=== PATIENT | male | born 1995 | race Caucasian/White ===

== ENCOUNTER 2024-03-06 08:00 | Outpatient (RCR) | payer MEDICARE, MEDICAID, SELFPAY ==
--- NOTE | 2024-03-06 09:00 | BH.SGPN.GN ---
Behaviors/Verbalizations/Mental Status: [] Eye contact is good. Motor activity is restless. Appearance is casual. Speech is Appropriate. Mood is anxious. Affect is congruent. Thoughts are linear and logical. No evidence of psychosis. Reviewed daily check in sheet and no reports of suicidal ideations or intent. Client Response/Progress/Benefit: [] Pt participated when prompted. Attentive. Limited engagement due to anxiety as this was his first day. He shared with the group his mental health struggles with OCD and intrusive thoughts. He did not elaborate much expect to state that his obsessions significantly impact his daily life. He is proud of himself for entering the PHP program. Benefited from group support, encouragement, and advice/feedback for his first day. Will continue in PHP to prevent decompensation, decrease intrusive thoughts/compulsions, and improve functioning. Narrative Note: []
--- NOTE | 2024-03-06 10:15 | BH.SGPN.GN ---
Behaviors/Verbalizations/Mental Status: []Pt alert and oriented, casually dressed and groomed. Eye contact good. Motor activity appropriate. Speech within normal limits. Affect congruent, mood depressed and anxious. Thoughts linear, logical, no signs of hallucinations or delusions. Client Response/Progress/Benefit: []Pt an active participant throughout. Participated during interactive discussion on defining conflict (internal/external) and possible benefits to conflict. Attentive during psychoeducation on conflict styles and engaged during group discussion in which peers identified the benefits and consequences to each conflict style. Pt identified they often struggle with avoiding conflict as he fears being seen as weak or incorrect. Reports connecting most with avoidant conflict style. Benefited from increased awareness of the impact of conflict styles in mental health. Will continue in IOP tx for one more day to increase healthy coping skills, improve mood stability, and prevent decompensation. Narrative Note: []
--- NOTE | 2024-03-06 11:15 | BH.SGPN.GN ---
Behaviors/Verbalizations/Mental Status: []Eye contact is good. Motor activity is appropriate. Appearance is casual. Speech is Appropriate. Mood is anxious, and depressed. Affect is constricted. Thoughts are linear and logical. No evidence of psychosis. Client Response/Progress/Benefit: [] Pt was engaged in group discussions and activity. Engaged with peers in activity and identifying healthy ways to approach each conflict scenario. Group discussed various conflict resolution skills that can be useful in addressing conflict outside of IOP. Benefited from practicing and learning conflict resolution skills during group activity. Able to identify areas pt wants to work on to improve how pt manages conflict both internally and externally. Expressed wanting to work on prioritizing his needs instead of avoiding conflict because he might upset someone. Will continue in PHP tx to prevent decompensation, improve daily functioning, and gain distress tolerance skills. Narrative Note: []
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
--- NOTE | 2024-03-06 15:15 | BH.COMM_ITS ---
Communication Note Communication with Client Communication Note: Met with pt to complete initial paperwork and administer the CSSR-S screening and risk assessment. Pt is mild as pt reports having thoughts of wishing he could fall asleep and not wake up because ?sleep is the only time I get peace.? Pt denies any SI, any history of SI, or any history of suicide attempts. Pt has self-harmed in his life, but pt reports it was never with the intention to kill himself. Pt reports he has a fear of . Pt has no access to weapons. Pt a Discussed case with Dr. Dodd and pt will be admitted to [facility] tx with a diagnosis of OCD F 42
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
--- NOTE | 2024-03-07 09:30 | BH.NA ---
Physical Data Vital Signs Pulse Rate: 94 Blood Pressure: 125/86 Height/Weight Height: 1.8 m Weight:: 97.522 kg Weight in Pounds: 215.0 lbs Current Medication Compliance Medication Compliance Do you take your medication as prescribed?: Yes Nutritional History Appetite Nutritional Instructions: Describe your appetite:: Good Additional nutritional information:: Client states he has recently gained about 20lbs due to not being able to exercise with a back injury and eating more due to his depression. Functional Assessment Sleep Pattern Describe any problems with sleeping: Client states he is sleeping about 9 hours per night, and usually napping about 2 hours per day. Sensory/Communication Assess Communication Problems Do you have difficulty understanding what people are saying?: No Medical Problems/History Metabolic Conditions Metabolic: Other (See comments) (hypothyroidism due to thyroid cancer and thyroidectomy) Musculoskeletal Conditions Musculoskeletal: Other (See comments) (back injury due to defect, per client) Cancer History Type of Cancer:: Thyroid Pain Assessment Do you have acute or chronic pain?: Yes (back pain due to injury) Surgical History Surgical History Have you had any surgeries? If so, list type and date:: Yes (testicular torsion, thyroidectomy) Substance Abuse Substance Abuse Please describe substance abuse in the last 30 days:: Client states he has not had any alcohol in the past year due to alcohol making him feel sick with his medication. Client states he has had occasional cigars in the past but none recently. Client states he uses marijuana daily, usually 2-4 times per day. Client states he drinks 1-2 pops per day with caffeine. Mental Status Summary Mental Status Significant Findings/Observations on Appearance and Mood:: Client is alert and oriented x 4. Client is casually groomed. Client is cooperative with assessment. Client has fair eye contact. Client's voice has normal rate and volume. Client's affect is somewhat restricted. Client makes logical associations and has normal processing. Client denies delusions/hallucinations, but does state that his constant intrusive thoughts feel like delusions sometimes. Client denies SI, but does admit to passive thoughts of . Suicide Assessment Suicidal Ideation Are you currently or have you been suicidal in the past?: Yes Suicidal Intentional Rating Scale (SIRS): Suicidal thoughts (past) (admits to passive thoughts of (don't care if I )) Physician Notification Past Psychiatric History MH Treatment Hx Past Psychiatric Medications:: Has had [employer] testing. States he has been on many antidepressants in the past, Ativan and Klonopin did not help Age of first mental health symptoms: Client states he has had OCD his whole life. Client states he was diagnosed with bipolar in the last 6-8 months. Client states he has been on medication for his mental health since age 16. Describe (age, circumstance, etc) any past hospitalizations: Once in 2013, most recent in September 2023 at [facility] for SI Current providers for mental health treatment (counselor, psychiatrist, pillowcase turner, etc.): Dr. Hernandez for psychiatry at [facility] Fall Risk Assessment Age Age: Less than 60 Mental Status Mental Status: Willing & able to ask for assistance when needed Physical Status Physical Status: No problems Impairments Impairments: None Elimination Elimination: Continent AND independent Gait or Balance Gait or Balance: Walks independently Hx of Falls History of falls in the past 6 months: No known history Medications/Substances Psychotropics:: Antipsychotics, Mood stabilizers and Anxiolytics (e.g. benzodiazepines) Medications/substances used within the past 24 hours or ordered to administer: 3 or more of the medications/substances listed above Total Score Total Points:: 2 RN Summary of Impressions Level of Care How do the client's current symptoms and functional deficits support need for this level of care?: Client was referred to IOP after a hospitalization in September 2023 and daily intrusive thoughts that have made daily function difficult. Client states he currently can not drive himself, stating every time he drives he has intrusive thoughts with every noise he hears that he is afraid he ran over a person and has to turn around and makes sure he didn't. 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 Client states he has constant intrusive thoughts that he has harmed people and my brain in constantly making me think I have done bad things that I would never do. Client reports feelings of guilt, constant ruminations, intrusive thoughts, crying spells and anhedonia. Client reports daily panic attacks recently. Client denies SI, but does admit to passive thoughts of . PHP/IOP will promote gains and prevent further decompensation while providing social support and skills training.
--- NOTE | 2024-03-07 10:10 | BH.SGPN.GN ---
Behaviors/Verbalizations/Mental Status: [] Eye contact is good. Motor activity is appropriate. Appearance is casual. Speech is Appropriate. Mood is anxious. Affect is congruent. Thoughts are linear and logical. No evidence of psychosis. Client Response/Progress/Benefit: [] Pt was an engaged participant AEB listening attentively to others, taking notes, and providing feedback in small group discussions. Attentive during psychoeducation AEB by note taking and providing some input. Pt worked along with peers in small groups to define inappropriate guilt and appropriate guilt. Interactive discussion on examples of both inappropriate and appropriate guilt. Worked well in small group with peers where they identified example of inappropriate vs appropriate guilt and the impact inappropriate guilt can have on MH. Benefited from increased awareness of guilt and the differences between appropriate and inappropriate guilt. Plan is to continue in PHP to prevent decompensation, decrease intrusive thoughts and compulsions, increase healthy coping, and improve functioning. Narrative Note: []
[2024-03-07 11:05] VITALS: BP 125/86; PULSE 94
--- NOTE | 2024-03-07 11:10 | BH.SGPN.GN ---
Behaviors/Verbalizations/Mental Status: []Pt alert and oriented, casually dressed and groomed. Eye contact good. Motor activity appropriate. Speech within normal limits. Affect congruent, mood anxious. Thoughts linear, logical, no signs of hallucinations or delusions. Client Response/Progress/Benefit: []Pt engaged participant AEB listening attentively to others and providing input throughout group. Pt worked within their small group to identify strategies to manage inappropriate guilt. Identified a personal example of inappropriate guilt as ?feeling responsible for something he didn?t do?. Provided insight that this cues a feeling of ?fear of disappointing others? Pt wants to work on combatting inappropriate guilt by correcting the distortions and practicing sitting with the uncomfortable. Pt seemed to benefit from learning about strategies to manage appropriate and inappropriate guilt. Pt to continue PHP level of care to continue to improve functioning, prevent decompensation, and promote mood stability. ? Narrative Note: []
--- NOTE | 2024-03-07 12:30 | PCM.BH.PSYEV ---
Psychiatric Evaluation Initial Evaluation Initial Evaluation: History of Present Illness: [] Patient is a 28-year-old's single, male with a history of OCD, depression, who was referred to the [facility] pH P program by his family due to worsening ability to function since September 2023. The patient has been unable to work or drive in recent months and lives with his mother and his 26 and 24-year-old brothers. The patient has a history of recent health issues including being diagnosed with ankylosing spondylitis in recent years and also being diagnosed with thyroid cancer in September 2021 which was treated and is currently in remission. He has been on disability since August 2019 for his back injury and chronic back pain and possibly PTSD but the patient is uncertain. 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 He has thoughts that when he put the business card in the package that he is actually sending something that is contaminating or he is putting pornography in the shipments. These are ego dystonic thoughts. He also has intrusive thoughts when he drives that he is running someone over and so any noise he hears when driving triggers this and he is no longer able to drive. The patient states I cannot keep living like this. The patient would like to be able to work in his online business and function better. The patient is also has intrusive thoughts that I will hurt someone accidentally by burning my house down. The patient then ruminates negatively over these intrusive thoughts to the point where he is uncertain whether they happened or not. For primary support he has his mom. He vapes marijuana daily 2-3 times a day. He endorses sadness, hopelessness, guilt, anhedonia, wanting to sleep all the time, low energy, decreased concentration and passive thoughts of . He denies suicidal ideation, plan for suicide, homicidal ideation, hallucinations or delusions. He denies any nica or hypomania issues. He states he spends money sometimes but only when he is feeling more normal but denies any other symptoms of hypomania or nica. He is a worrier by nature and ruminates negatively. He has been isolating himself and is having panic attacks less than or equal to 1 a day. He has a history of trauma when his sister when he was 9 years old in addition he had a friend in 6 grade and his parents when he was first grade which she found traumatic. He denies nightmares, flashbacks or reexperiencing but he does endorse and avoidance. He denies seizures and has had 2 minor concussions only. He denies eating disorder. Current Psychiatric Medications: [] Xanax 1 mg p.o. less than or equal to once a week as needed for panic attacks; Luvox 50 mg daily (x 1 week only); Latuda 80 mg p.o. daily with food (times several months); Lamictal 150 mg p.o. daily; clomipramine currently weaning off and changing over to Luvox. Past Psychiatric History: [] 3 psych admits in the past. The most recent was in September 2023 at [facility] for severe anxiety and depression. The second 1 was in 2017 and the patient says at that time he was experiencing extreme anxiety, derealization and depersonalization to the point where he thinks he may have been psychotic but is unable to describe symptoms except to say that he was not sure that anything was real. His first psychiatric admission was in 2013. No suicide attempts ever. OCD he has had since he was a toddler and remembers severe symptoms at age 7 also. It worsened in 2019 with the pandemic and then got worse again in the past few months. In 2021 he was experiencing derealization and depersonalization and then got diagnosed with thyroid cancer a few days later. He was first depressed at age 15. He cut himself 1 time in 2021 only and then 1 time on the leg superficially in September 2023 but no other self-harm. Psychiatrist is Dr. Hernandez in [place] for about 1 year. He has had counseling for about 10 years. Denies any exposure and response prevention therapy. Substance Use History: [] Patient vapes marijuana 2-3 times daily and first used marijuana at age 18 and has used it daily for 8 years. No other drug use. No nicotine and no alcohol use. No rehab ever. Allergies: [] Haldol Medications: [] Levothyroxine, multivitamin plus psych meds as dictated above. Past Medical History: [] Ankylosing spondylitis diagnosed in 2012; chronic back pain/injury for which she needs surgery in his right leg gets numb etc. History of thyroid cancer treated with surgery and he is currently in remission. History of surgery for testicular torsion in high school and thyroid surgery as noted above. Family Psychiatric History: [] Mother is 55 years old and father is 59 years old. His father has bipolar and he has a half sister who completed suicide at age 21 and had a history of some cognitive disorder but was a lot older than him. No substance issues in the family. Personal/Social History: [] Patient was born and raised in [place] and then [place] in [facility]. He describes his childhood as I enjoyed it until age 15 except for the traumas. He loves sports and had a lot of friends. He got was a B student and was a perfectionist at school. He had a half sister 18 years older than him and that is the 1 who completed suicide. He has 2 younger brothers and they are not that close but they get along okay and they are one 1 year and 3 years younger than him respectively. His mother is very loving and he is very close to her. His father is not loving and they when the patient was in first grade. Then he saw his father only on weekends and is not very close to his father. He graduated high school and has 1 semester of college but did not like it so quit. He has had numerous jobs in fast food, retail, [employer], dog grooming, [employer] services and now his online business selling vintage clothing. His longest job is the current 1 part-time for about 4-1/2 years. He has never had a serious girlfriend but would like once some day when he gets better. Legal History: [] No arrests. Has otr van cdl truck driver's license. No DUIs. Review of Systems: [] Has a history of chronic back pain with numbness in his legs due to this. Review of system is otherwise negative except as noted in present illness. Laboratory: Thyroid is checked regularly by his thyroid doctor. Vital Signs: [] Vital signs reviewed in the nurses notes and updated and the patient is deemed medically able to participate in the IOP. Mental Status Examination: [] The patient is a 28-year-old male who appears normal for stated age and is casually dressed and good groomed with good hygiene. He is ambulatory with a normal gait and has no psychomotor agitation or retardation. He is cooperative during the interview. Eye contact is good and speech is normal rate and rhythm and fluent with no pressure. Mood is anxious and depressed. Affect is constricted. Thought process is goal-directed and organized. Thought content: The patient has evidence of numerous ego-dystonic intrusive thoughts involving the patient accidentally hurting someone, hitting someone with the car, putting pornography or other contamination and thinks he should males and other. There is evidence of passive thoughts of . There is no evidence of plan for suicide, suicidal ideation, homicidal ideation, hallucinations or delusions. Reality testing is intact. Intelligence is average or above average. Judgment is intact. Insight: Some present. Impulsivity: Moderate. Diagnoses: [] 1. Obsessive-compulsive disorder 2. Major depressive disorder, recurrent, severe without psychosis 3. Generalized anxiety disorder 4. Chronic back pain 5. Ankylosing spondylitis 6. History of thyroid cancer in remission 7. Primary support and work issues 8. THC use disorder Plan: [] The patient will start the [facility] and behavioral health as the structure, support, education and group therapy will hopefully prevent worsening of the patient's symptoms which could require hospitalization. He felt safe during the interview and if it anytime he does not feel safe he agrees to let us know or go to the emergency room. The patient agrees to try to decrease his marijuana use as marijuana can make panic attacks worse and is considered to be panicogenic. No medication changes were made as the doses were recently changed 1 week ago. Discussion was had with the patient that OCD requires higher doses of medications and sometimes can take 12 weeks to see a response in the OCD symptoms. Strong recommendation was made for the patient to get exposure and response prevention therapy later when his OCD is a little better controlled by medications. He will continue to follow-up with his outpatient providers and I will see the patient in follow-up in 1 week.
--- NOTE | 2024-03-07 12:45 | BH.DR.ITP ---
Initial Treatment Plan Patient Information Visit Information: ADMISSION DATE: EXPECTED LOS: 4-6 weeks Problems/Symptoms Problem #1:: Anxiety Symptom:: Worry, rumination, panic attacks, avoidance, intrusive obsessive thoughts Problem #2:: Depression Symptom:: Sadness, hopelessness, guilt, low energy, hypersomnia, anhedonia, passive thoughts of , decreased concentration
--- NOTE | 2024-03-07 15:02 | BH.MDN_ITS ---
Multi-Disciplinary Note Note 45-min Individual: Time Started:: 12:15 Date: 03/07/24 Purpose of session/treatment goals addressed:: To work on homework from yesterday, continue to gather information on pt's symptoms, and begin work on exposure goals. Eye Contact:: Good Motor Activity:: Appropriate Appearance:: Casual Speech:: Rambling Mood:: Anxious and Depressed Affect:: Constricted Thoughts:: Racing, Other (intrusive thoughts) and No evidence of hallucinations/delusions noted Staff Interventions:: psychoeducation on: (ERP and intrusive thoughts), CBT techniques, mindfulness skills, strengths perspective and other (reviewed homework and set homework for tonight. Discussed plan of care that included beginning an exposure hierarchy. ) Client Response:: Pt responded well to session, open to meeting with therapist. Pt reported the topic today was helpful because pt struggles with constant guilt due to his OCD symptoms. Pt feels guilt about hurting people and things he knows he has not logically done. Pt read through the first chapter of the OCD book being used and he connected with it. Reviewed this chapter and discussed the different voices of the mind; worried voice, false comfort, and wetzel mind. Pt asked good questions about the different between worried voice and false comfort which helped pt gain a better understanding of how these voices reinforce OCD. Pt able to see that worried voice for him is the constant what if thoughts that pt has anytime he tries to calm his anxiety down. Pt's false comfort thoughts include reassurance seeking and trying to fight against the disturbing, intrusive thought. Reviewed wetzel mind and reflected on times when pt was able to use wetzel mind before. Pt feels that he could use wetzel mind in the past because his thoughts were less disturbing. Pt worries he will never be able to get past his current intrusive thoughts because of how taboo they are. Pt appeared to benefit from emotional support and thought challenging by therapist. Discussed other ways his intrusive thoughts are reinforced which led to discussion of the compulsions pt engages in that are not mental checking, but physical things. 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 Pt could identify some such as; re- reading addresses excessively, packaging and repackaging orders excessively, and asking for constant reassurance from his mother. Pt will identify other compulsions for homework as this will help pt begin to create his exposure goals. Risks/Concerns:: Pt denies any active SI, plan, or intent. Pt has thoughts of but no SI. Progress Toward Goals/Plan:: Pt's second day of PHP tx and pt reports benefitting from the group topics so far and from seeing Dr. Dodd today. Pt's symptoms are impacting his overall quality of life, daily functioning, and ability to work and drive. Pt is receptive to ERP and beginning to identify some of the compulsions he engages in so pt and therapist can begin working on exposure hierarchy. Pt will continue PHP tx to prevent decompensation, improve daily functioning, and gain distress tolerance skills. Time Stopped:: 13:00
--- NOTE | 2024-03-08 09:05 | BH.SGPN.GN ---
Behaviors/Verbalizations/Mental Status: [] Eye contact is fair. Motor activity is appropriate. Appearance is casual. Speech is Appropriate. Mood is anxious. Affect is congruent. Thoughts are linear and logical. No evidence of psychosis. Reviewed daily check in sheet and no reports of suicidal ideations or intent. Client Response/Progress/Benefit: [] Pt participated at times during the group discussion. Attentive. Emotion for today is detached and disconnected. He discussed being in his head a majority of the time due to intrusive thoughts and obsessions. Briefly shared how these intrusive thoughts can impact his emotions and actions. He is optimistic stating I found a therapist here that actually understands OCD. He shared previous frustrations. He plans on attending a large social event this weekend which he is both excited and fearful about. Peers provided feedback and suggestions on skills to manage anxiety in large crowds which was beneficial. Limited progress noted as intrusive thoughts continue to impact functioning (unable to work/drive). Will continue in PHP to prevent decompensation, decrease intrusive thoughts, and improve functioning. Narrative Note: []
--- NOTE | 2024-03-08 10:00 | BH.SGPN.GN ---
Behaviors/Verbalizations/Mental Status: []Pt alert and oriented, casually dressed and groomed. Eye contact good. Motor activity appropriate. Speech within normal limits. Affect constricted, mood anxious. Thoughts linear, logical, no signs of hallucinations or delusions Client Response/Progress/Benefit: [] Pt was an engaged participate AEB listening attentively to others, participating in group discussions at times, and taking notes throughout. Participated as the group identified ways we can hurt others or sabotage self by not regulating our emotions. Participated with peers to identified ways emotions impact communication. Pt stated high emotions can lead him to shut down. Participated during group activity. Pt benefited from session by gaining an increased understanding on the importance of managing emotions to improve daily functioning. Pt will continue PHP to decrease intrusive thoughts, improve daily functioning, and prevent decompensation.
--- NOTE | 2024-03-08 11:15 | BH.SGPN.GN ---
Behaviors/Verbalizations/Mental Status: []Pt alert and oriented, casually dressed and fairly groomed. Eye contact good. Motor activity appropriate. Speech within normal limits. Affect congruent, mood anxious. Thoughts linear, logical, no signs of hallucinations or delusions. Client Response/Progress/Benefit: [] Pt engaged in session AEB Pt listening attentively to peers and providing input. Attentive during psychoeducation on 4 zones of regulation. Pt able to identify feelings and behaviors for each zone. Pt identified coping skills one can use to support self in each zone. Identified being in the red zone today as pt feels highly anxious and he believes the only thing that will help him today is getting individual counseling after group. Benefited from increased education on zones of regulation or stages of alertness for emotions and healthy coping skills to use for each zone. Will continue PHP tx to prevent decompensation, improve daily functioning, and gain distress tolerance skills. Narrative Note: []
--- NOTE | 2024-03-08 14:35 | BH.MDN_ITS ---
Multi-Disciplinary Note Note 60-min Individual: Time Started:: 12:10 Date: 03/08/24 Purpose of session/treatment goals addressed:: To work on goal #1 of pt's tx plan. Eye Contact:: Good Motor Activity:: Restless Appearance:: Casual Speech:: Tangential, Rapid and Other (repetitive) Mood:: Anxious and Depressed Affect:: Congruent (tearful) Thoughts:: Racing and Circular Staff Interventions:: psychoeducation on: (OCD and intrusive thoughts), CBT techniques, mindfulness skills (practiced deep breathing and self-talk in session), strengths perspective, goal setting (homework to read chapter 3 and practice grounding skills) and taught coping skills Client Response:: Pt responded well to session, open to meeting with therapist. Pt completed homework from last session which was to identify a list of compulsions. Pt's list included; touching his dogs to make sure they are inside, checking the mirror in his car ti make sure he did not hit anyone, turning door knobs until it feels right, re-reading orders out loud until it feels right, turning on and off light switches until it feels right, and asking for reassurance. Pt stated there's so many, this was just want I could think of yesterday. Due to the severity of pt's intrusive thoughts, pt is unable to go more than a few minutes in session without seeking reassurance and bringing up his sexually repulsive intrusive thoughts as they cause a lot of anxiety and shame. Pt is learning that therapist will redirect and not feed the intrusive thought, but pt also needs to have his intrusive thoughts normalized so he does not think he is the only person who has had these. Pt responded well to review of the three voices of the mind; worried voice, false comfort, and wetzel mind. Pt has insight that his thoughts are irrational and intrusive, but pt is unable to withstand from using false comfort currently. Pt and therapist reviewed strategies to help with this included using deep breathing and a wetzel mind statement when pt catches himself spiraling. The mantra used in session was uncertainty is not bad, not knowing every detail doesn't mean something bad happened. Pt is to use this when he begins to have false memories from when he watched his previous girlfriends children. Discussed how the goal when overcoming OCD is not to get certainty, but to learn how to accept thoughts and uncertainty. Pt responded well to an exposure narrative read by therapist and pt shared that helped him feel like he was not alone. Pt's homework is to read chapter 3 and practice his mantra. Risks/Concerns:: Pt denies any active SI, plan, or intent as of 03/08/24. Progress Toward Goals/Plan:: Pt's progress is mild and he is on his third day of PHP tx. Pt feels he is benefitting from the group topics and he is engaging well in group. Pt's symptoms are unchanged, his intrusive thoughts are severe and he is getting little relief unless he is asleep. Pt does report some hopefulness about treatment, but he has excessive worries and constant what if thoughts. Pt often repeats himself during session due to anxiety and intrusive thoughts. Pt seeks reassurance from this therapist often, but pt understands t hat therapist will be working with pt to reduce this. Pt continues to be receptive during sessions and he, so far, is consistent with homework. Pt will continue PHP tx to prevent decompensation and gain healthy coping skills. Time Stopped:: 13:05
--- NOTE | 2024-03-09 09:00 | BH.SGPN.GN ---
Behaviors/Verbalizations/Mental Status: [] Eye contact good. Motor activity appropriate. Speech within normal limits. Affect congruent, mood anxious, content. Thoughts linear, logical, no signs of hallucinations or delusions. Reviewed client?s symptom tracker, pt denies SI,?plan, or intent as of 03/09/2024. Client Response/Progress/Benefit: [] Client receptive of session, attentive and willing to process with group. Identified mental health ?win as allowing himself to be more optimistic about his progress, rather than disqualify it as he often does. Went on to state an additional win as attending group today despite being in a lot of physical pain. Stated this is also his stressor as he struggles with chronic physical pain and has not heard back from his provider. Encouraged by the group to reach back out and advocate for himself. Receptive of and appearing to benefit from group feedback and suggestions. Recommended continued PHP tx to maintain mood stability, promote consistent skill application, well as prevent decompensation. Narrative Note: []
--- NOTE | 2024-03-09 10:10 | BH.SGPN.GN ---
Behaviors/Verbalizations/Mental Status: []Pt alert and oriented, neatly dressed and groomed. Eye contact good. Motor activity appropriate. Speech within normal limits. Affect congruent, mood anxious. Thoughts linear, logical, no signs of hallucinations or delusions Client Response/Progress/Benefit: [] Pt participating during interactive group discussions. Attentive during psychoeducation. Along with peers contributed to interactive discussion on defining what a boundary is in mental health. Pt along with peers identified challenges to setting boundaries which included; fear of other's response, wanting to people please, fear of rejection, losing relationships, etc. Pt along with peers identified the benefits to setting boundaries such as better mental health, strengthen relationships, increased time for self-care, and making healthier choices. Pt shared that he struggles with setting boundaries because he is afraid people will be upset and he does not like conflict. Pt benefited from increased awareness and insight on the importance/benefit to setting health boundaries. Will continue in PHP tx to prevent decompensation, increase daily functioning, and gain healthy coping skills. ? Narrative Note: []
--- NOTE | 2024-03-09 11:00 | BH.SGPN.GN ---
Behaviors/Verbalizations/Mental Status: [] Eye contact is fair. Motor activity is appropriate. Appearance is casual. Speech is Appropriate. Mood is anxious. Affect is congruent. Thoughts are linear and logical. No evidence of psychosis. Client Response/Progress/Benefit: []Pt responded well to session AEB listening attentively to peers, providing some input, as well as taking notes throughout. Pt contributed throughout psychoeducation on different boundary setting styles. Participated in group discussion brainstorming various strategies for improving healthy boundary settings. Pt stated he wants to work on improving boundaries by practicing saying no. ?Seemed to benefit from increased awareness of how different boundary styles can impact mental health. Will continue PHP to increase consistent use of healthy coping skills, decrease anxious avoidance, and prevent decompensation.
--- NOTE | 2024-03-09 15:26 | BH.MDN_ITS ---
Multi-Disciplinary Note Note 60-min Individual: Time Started:: 12:00 Date: 03/09/24 Purpose of session/treatment goals addressed:: To work on goal #1 of pt's tx plan. Eye Contact:: Good Motor Activity:: Appropriate Appearance:: Neat Speech:: Appropriate Mood:: Euthymic and Anxious Affect:: Full Thoughts:: Linear, Logical and No evidence of hallucinations/delusions noted Staff Interventions:: mindfulness skills, goal setting, taught coping skills (reviewed cognitive defusion and other techniques to help with intrusive thoughts.) and other (reviewed homework from yesterday and gave homework to read chapter 7) Client Response:: Pt responded well to session, open to meeting with therapist. Pt reports he is feeling more positive today because of the football game tomorrow, but he is also stressing because he knows this feeling is short-term. Discussed the importance of emotional respite, no matter how long it is. Pt read chapter 3 for homework and highlighted sections he connected with. Pt stated it was helpful to read what I'm thinking and experiencing as it helped pt feel less alone. This chapter was on myths about thoughts and we reviewed some of the ones pt connected with including; thoughts that are repeated are worth thinking about, thoughts mean something about one's character, and the unconscious mind can affect actions. Pt reported one reason his current thoughts are so sticky is because he fears that he just snapped one day and now he is a bad person. This chapter helped pt see that this is common for people with OCD and gave evidence to show this is a myth. Reviewed wetzel mind, worried voice, and false comfort. Pt receptive to therapist helping pt identify his false comfort statements and during session pt was encouraged to practice distress tolerance skills. One thing pt will begin working on in tyler tion to using a self-talk mantra, is avoiding using the words serious, taboo, and terrible when pt talks about his intrusive thoughts. Discussed how the way pt describes these thoughts can actually make the thoughts more sticky as serious thoughts get more attention from the anxious brain. Pt is encouraged to label his intrusive thoughts as junk thoughts as a way to begin practicing himself from the thought and giving the thought less value. Pt struggled with this, but he responded well to gentle reminders. Risks/Concerns:: Pt denies any active suicidal ideations, plan, or intent. Progress Toward Goals/Plan:: Pt's symptoms are ongoing, but pt reports his mood is more excited today because pt is looking forward to a football game he is attending this weekend with his mom. Pt can recognize that looking forward to something gives pt a healthy distraction from his intrusive thoughts, but pt is predicting that by Tuesday the thoughts will be back. Pt will continue with PHP tx to promote mood stability, reduce intensity of pt's intrusive thoughts, and improve daily functioning that has been impaired by OCD. Time Stopped:: 12:55
--- NOTE | 2024-03-12 09:00 | BH.SGPN.GN ---
Behaviors/Verbalizations/Mental Status: [] Pt alert and oriented, casually dressed and groomed. Eye contact fair. Motor activity appropriate. Speech within normal limits. Affect congruent, mood anxious. Thoughts linear, logical, no signs of hallucinations or delusions. Reviewed pt?s symptom tracker, no risk for suicidal ideation, plan, or intent 03/12/24 Client Response/Progress/Benefit: []Pt responded well to session, attentive and engaged. Pt reports feeling distressed and overwhelmed this morning. Pt shared his OCD symptoms tend to be worse over the weekends and pt is also anxious about how the week will go. Pt shared his mental health wins today are that he drove to [facility] by himself today and he did not cancel. 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 Pt was reminded that it is okay to ask for help. Pt appeared to benefit from reflecting on application of coping skills and connecting with peers. Pt will continue PHP tx to prevent decompensation, improve daily functioning, and reduce isolation. Narrative Note: []
--- NOTE | 2024-03-12 10:15 | BH.SGPN.GN ---
Behaviors/Verbalizations/Mental Status: [] Eye contact is good. Motor activity is appropriate. Appearance is casual. Speech is Appropriate. Mood is anxious, depressed. Affect is congruent. Thoughts are linear and logical. No evidence of psychosis. Client Response/Progress/Benefit: [] Pt receptive of session, actively engaged throughout AEB taking notes, providing input, and contributing in small group discussion. Appeared to connect with group topic of automatic thoughts and cognitive distortions, as well as the impact of thought patterns on mental health, coping behaviors, and relationships. This particular group is very heavy on psychoeducation and pt appeared to connect with distortions and how they can impact functioning. Identified struggling with catastrophizing and mental filter distortions. Pt appeared to benefit from gaining insight on distorted thinking patterns and how this impacts overall mental health. Will continue PHP to stabilize mood, improve ability to function, and prevent decompensation. Narrative Note: []
--- NOTE | 2024-03-12 11:15 | BH.SGPN.GN ---
Behaviors/Verbalizations/Mental Status: []Pt alert and oriented, casually dressed and groomed. Eye contact good. Motor activity appropriate. Speech within normal limits. Affect congruent, mood anxious. Thoughts linear, logical, no signs of hallucinations or delusions Client Response/Progress/Benefit: [] Pt was an active participant during group discussion. Pt was placed in a smaller group and participated in combatting example distortions with peers. Pt was engaged in the smaller group, participated in group interactions to brainstorm answers, and appeared to be comprehending cognitive distortions. Pt stated could connect with many of the distortions covered in group. Pt stated he has learned from group today that paying attention to his mindset can have significant impact on his day and progress. Benefited from gaining further insight and awareness of cognitive distortions as well as practicing ways to reframe and challenge thoughts. Will continue in PHP tx to decrease anxiety safety behaviors, improve healthy coping skills, and prevent decompensation.
--- NOTE | 2024-03-12 15:04 | BH.MDN_ITS ---
Multi-Disciplinary Note Note 60-min Individual: Time Started:: 12:00 Date: 03/12/24 Purpose of session/treatment goals addressed:: To work on goal #1 of pt's tx plan and to begin pt's fear ladder. Another goal is to give pt credit for using his skills. Eye Contact:: Good Motor Activity:: Restless Appearance:: Casual Speech:: Tangential and Other (stuttering at times and repetitive, but less so compared to 03/09/24. ) Mood:: Anxious and Other (hopeful) Affect:: Congruent Thoughts:: Racing, Other (less urgency to share thoughts ) and No evidence of hallucinations/delusions noted Staff Interventions:: psychoeducation on: (intrusive thoughts, fear ladder ), CBT techniques, mindfulness skills, strengths perspective and goal setting Client Response:: Pt responded well to session, open to meeting with therapist. Pt is responding well to the Overcoming Unwanted Intrusive Thoughts book and he reports gaining insight as well as skills. Pt connected with the metaphor of a bouncer at the door to help pt dismiss intrusive thoughts that pt is having instead of trying to use false comfort. Pt liked this metaphor and he shared feeling that he feels like his intrusive thoughts aren't knocking at the door as loudly today so he has been able to engage more. Pt stated he had a good weekend and enjoyed the football game he went to with his mother. Pt was anxious about starting the week but pt feels he is doing okay. Pt shared he practiced using the wetzel mind statements over the weekend and pt responded well in session when therapist held pt accountable when he used words like serious and taboo instead of junk. Pt did drive to [facility] today which is the first time pt has driven in a while. Pt admits that he was experiencing a lot of OCD triggers and anxiety, but he wanted to drive because he was starting to feel like a burden to his mother. Discussed working on a fear ladder focused on driving. Reviewed how fear ladders work and pt was anxious, but receptive. 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 Pt receptive to working on the fear ladder for homework and this will be reviewed tomorrow. Risks/Concerns:: Pt denies any active SI, plan, or intent. Pt is more hopeful today. Progress Toward Goals/Plan:: Pt is making progress towards his tx goals AEB pt's reduction in bringing up his most distressing intrusive thoughts less today and using his dismissal skills during session. Pt also shared he used opposite action this morning and drove to IOP. Pt had severe anxiety from the drive, but pt reported he was able to regulate it by groups 2/3 today and be present and benefit from the groups. Pt continues to be consistent and engaged. Pt reports his intrusive thoughts are still constant, but he feels he is gaining more control. Pt will continue PHP tx to promote mood stability, reduce intensity of intrusive thoughts, and improve daily functioning. Time Stopped:: 13:00
--- NOTE | 2024-03-13 09:05 | BH.SGPN.GN ---
Behaviors/Verbalizations/Mental Status: [] Eye contact is poor.. Motor activity is restless. Appearance is casual. Speech is Appropriate. Mood is anxious. Affect is congruent. Thoughts are linear and logical. No evidence of psychosis. Reviewed daily check in sheet and no reports of suicidal ideations or intent. Client Response/Progress/Benefit: [] Pt participated when prompted. Attentive. Daily symptom tracker notes 2/5 for depression and agitation and 3/5 for anxiety. Mental health win was that he drove to [facility] by himself for the past few days. He has been unable to drive for several weeks due to intrusive thoughts and anxiety. ? I made it here without thinking that I hit anyone?. States overall he has noticed slight improvements due to exposure goals and education on intrusive thoughts. ? I think I?m doing pretty well?. Continues to report intrusive thoughts which are impacting his functioning however. Recent obsessive thoughts regarding his health which are upsetting him today. Progress noted. Benefited from group support, encouragement, and feedback. Will continue in [facility] to prevent decompensation, stabilize mood, decrease intrusive thoughts, and improve functioning. Narrative Note: []
--- NOTE | 2024-03-13 10:10 | BH.SGPN.GN ---
Behaviors/Verbalizations/Mental Status: []Client alert and oriented, casually dressed and groomed. Eye contact good. Motor activity appropriate. Speech within normal limits. Affect congruent, mood anxious and euthymic. Thoughts linear, logical, no signs of hallucinations or delusions. Client Response/Progress/Benefit: [] Pt responded well to session AEB actively participating throughout group. Pt was attentive throughout group activity discussing famous individuals and how they overcame failure to be successful. Pt helped group identify how fear of failure can impact mental health and relationships. Pt personally identified it leads to avoidance, not trying, and negative self-talk. participated in experiential activity, working with group members to problem solve. Appeared to benefit from increased knowledge of what causes fear of failure and how it impacts people. Will continue PHP tx to prevent decompensation, improve daily functioning, and reduce intensity of intrusive thoughts. Narrative Note: []
--- NOTE | 2024-03-13 11:10 | BH.SGPN.GN ---
Behaviors/Verbalizations/Mental Status: [] Client alert and oriented, casually dressed and groomed. Eye contact good. Motor activity appropriate. Speech within normal limits. Affect congruent, mood anxious and content. Thoughts linear, logical, no signs of hallucinations or delusions. Client Response/Progress/Benefit: [] Client responded well to session, engaged in the experiential activity and attentive throughout group processing. Client reported fear of failure has kept client from trying new things and forming new relationships. Client completed fear of failure worksheet and was able to identify thoughts and behaviors that reinforce personal fear of failure including past failures, already predicting failure, and ?false thoughts?. Client participated in small group discussion regarding strategies to overcome fear of failure. Identified wanting to work on combating predicting failure with learning to set smart goals and better sit with the uncomfortable. Appeared to benefit from increased knowledge of strategies to combat fear of failure and gaining self-awareness. Client will continue PHP tx to promote gains in reduced anxiety symptoms and prevent decompensation. Narrative Note: []
--- NOTE | 2024-03-13 14:08 | BH.MDN ---
Multi-Disciplinary Note Note 45-min Individual: Time Started:: 12:15 Date: 03/13/24 Purpose of session/treatment goals addressed:: To work on pt's exposure therapy goals and practice wetzel mind self-talk. Eye Contact:: Good Motor Activity:: Appropriate Appearance:: Casual Speech:: Appropriate and Other (repetitive) Mood:: Euthymic and Anxious Affect:: Full Thoughts:: Linear, Racing and No evidence of hallucinations/delusions noted Staff Interventions:: CBT techniques, mindfulness skills, strengths perspective, goal setting and other (reviewed fear ladder and set this weeks ERP goal) Client Response:: Pt responded well to session, open to meeting with therapist. When pt sat down he shared an intrusive thought he was having which was I've poisoned someone at IOP pt was distressed, but he was able to use the techniques he has been working on to begin dismissing this thought. Pt has been working on saying these are junk thoughts and using the bouncer at the door metaphor to help pt dismiss intrusive thoughts and use wetzel mind instead. Pt stated he can tell his intrusive thoughts are a little more persistent today, but he still feels better than last week. Pt completed his homework from yesterday which was to identify steps for his fear ladder. Pt's fear ladder is focused on reducing anxiety and intrusive thoughts pt has while driving. Prior to this past Tuesday, pt had not been able to drive himself places due to his hit and run OCD being so severe. Pt has now driven himself twice to [facility], but he admits he feels severe anxiety the entire time. Discussed the fear ladder and why it is important to start slowly and work his way up. Pt recognizes he kind of dove right in but he shared the reason why is because he did not want his mom to keep taking off work. Pt did well with identifying fear ladder goals and pt selected his goal for this week which is to sit in his parked car with the car turned off without checking his mirrors. Pt shared this gives he mild anxiety and he feels that he can repeat this goal. Pt shared he is anxious about the ERP goals, but he is also interested in them. Risks/Concerns:: Pt denies any suicidal ideations, plan, or intent. Pt denies any thoughts of . Progress Toward Goals/Plan:: Pt continues to make progress towards his tx goals AEB pt's self-report of utilizing healthy coping skills outside of group, pt's receptiveness to exposure goals, and his increasing ability to dismiss intrusive thoughts. Pt's symptoms continue to impact his daily functioning and keep pt from working. Pt is working on being able to drive again, but pt reports when he forces himself to drive, he has severe anxiety the entire time. Pt will continue PHP tx to promote use of healthy coping skills, increase ability to manage intrusive thoughts and reduce compulsions, and improve daily functioning. Time Stopped:: 13:00
--- NOTE | 2024-03-14 09:00 | BH.SGPN.GN ---
Behaviors/Verbalizations/Mental Status: [] Eye contact good. Motor activity appropriate. Speech within normal limits. Affect congruent, mood anxious. Thoughts linear, logical, no signs of hallucinations or delusions. Reviewed client?s symptom tracker, pt denies SI,?plan, or intent as of 03/14/2024. Client Response/Progress/Benefit: [] Client receptive of session, attentive and willing to process with group. Reports improving sx of depression?(1/5) and anxiety (3/5) per daily sx tracker. ?Identified mental health ?win as sitting with the uncomfortable and going to put air in his tires despite knowing this would make him late for iOP treatment. Shared that normally he would have cancelled group for the day rather than be late, but is working towards exposure goals. Discussed feeling proud of himself for being able to accomplish this goal. Additional win noted as continuing to show-up for IOP treatment, despite feeling anxious and uncomfortable working through his OCD. Reviewed the importance of being able to better manage OCD symptoms. Pt described his current stressor as continuing to work on exposure goals. Noted this is both a positive and stressor. Receptive of and appearing to benefit from group support. Recommended continued PHP tx to further improve mood stability, promote consistent skill application and ongoing progress with ERP tx, as well as prevent decompensation. Narrative Note: []
--- NOTE | 2024-03-14 10:10 | BH.SGPN.GN ---
Behaviors/Verbalizations/Mental Status: [] Eye contact is good. Motor activity is appropriate. Appearance is casual. Speech is Appropriate. Mood is anxious. Affect is congruent. Thoughts are linear and logical. No evidence of psychosis. Client Response/Progress/Benefit: [] Pt participated at times during group discussion. Engaged in group activity and attentive during psychoeducation. Along with peers, pt was able to identify barriers to taking action in their life. Identified several symptoms and stressors that pt feels are holding them back from progress such as fear and self-doubt. Stated these things have kept pt from having a life that is more enjoyable as well as relationships. Benefited from increased self-awareness of obstacles. Will continue IOP tx to prevent decompensation, stabilize mood, improve functioning, decrease intrusive thoughts, and increase healthy coping. Narrative Note: []
--- NOTE | 2024-03-14 11:10 | BH.SGPN.GN ---
Behaviors/Verbalizations/Mental Status: []Pt alert and oriented, casually dressed and groomed. Eye contact good. Motor activity appropriate. Speech within normal limits. Affect congruent, mood anxious. Thoughts linear, logical, no signs of hallucinations or delusions. Client Response/Progress/Benefit: [] Pt responded well to session, taking notes and participating in worksheet discussion. Pt connected with the discussion on motion vs action steps, and this helped pt learn how to set goals differently. Pt set a goal to reduce fear of rejection. Pt identified motion steps including practicing positive self-talk, having his mother for support, and reminding himself what he wants. Pt also made action steps which included saying affirmations and using opposite action. Appeared to benefit from identifying a small goal to benefit mental health. Pt is to continue PHP tx to promote mood stability, reduce frequency of intrusive thoughts and improve daily functioning. ? Narrative Note: []
--- NOTE | 2024-03-14 12:00 | PCM.BH.PN ---
Progress Note Progress Note: History of Present Illness/Interim History: The patient is a 28-year-old single male with a history of OCD, depression is seen in follow-up at the [facility] where he was last seen 1 week ago. The patient states that he feels a lot better since starting the program last week. He feels he is learning valuable information in the groups but especially in his individual therapy sessions regarding his obsessive-compulsive disorder. He states that his intrusive thoughts are a little less intense and easier to ignore. 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 These are still present as stated above but are less intense and he is learning skills to deal with them. He still is unable to work or drive. He has a history of ankylosing spondylitis and thyroid cancer in September 2021 which is in remission and has been on disability since August 2019 for chronic back pain. He has been decreasing his marijuana usage as recommended and is tried to not ruminate negatively over his intrusive thoughts. His depressive symptoms have also lessened and he denies any passive thoughts of this week. He also continues to deny suicidal ideation, plan for suicide, homicidal ideation, hallucinations or delusions. He is still having occasional panic attacks but less than before. He is tolerating the Luvox well. Current Psychiatric Medications: [] Luvox either 50 mg or 100 mg (patient uncertain of what dose he is on and told the nurse here a different dose than he told's so he will check the dose at home; he has been on that dose for 2 weeks now); he is discontinuing his wean of the clomipramine and will stop taking clomipramine in the next day or 2.; Latuda 80 mg p.o. daily with food (times several months); Lamictal 150 mg p.o. daily; Xanax 1 mg p.o. less than or equal to once a week as needed for panic attacks. Mental Status Examination: [] The patient is a 28-year-old male who appears normal for stated age and is ambulatory with a normal gait and is casually dressed and groomed with good hygiene. He has no psychomotor agitation or retardation. He is cooperative and pleasant during the interview. Eye contact is good and speech is normal rate and rhythm and fluent with no pressure. Mood is anxious and depressed. Affect is mildly constricted. Thought process is goal-directed and organized. 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 There is no evidence of passive thoughts of , plan for suicide, suicidal ideation, homicidal ideation, hallucinations or delusions. Reality testing is intact. Judgment is intact. Insight is fair and improving. Impulsivity is moderate. Diagnoses: [] 1. Obsessive-compulsive disorder 2. Major depressive disorder, recurrent, severe without psychosis 3. Generalized anxiety disorder 4. Chronic back pain 5. Ankylosing spondylitis 6. History of thyroid cancer in remission 7. THC use disorder 8. Primary support and work issues Plan: [] The patient will continue the PHP as the structure, support, education and group therapy will hopefully prevent worsening of the patient's symptoms which could require hospitalization. He felt safe during the interview and if it anytime he does not feel safe he agrees to let us know or go to the emergency room. He will continue to try to decrease his marijuana use. He agrees to find out the exact dose of the Luvox he is on and he will increase that dose by 50 mg and let us know what dose that is. The patient agrees to get further exposure and response prevention therapy later when he is finished with the eye IOP and PHP. He will continue to follow-up with his outpatient providers and I will see the patient in follow-up in 1 week.
--- NOTE | 2024-03-14 15:38 | BH.MDN ---
Multi-Disciplinary Note Note 45-min Individual: Time Started:: 12:00 Date: 03/14/24 Purpose of session/treatment goals addressed:: To work on goal #1 of pt's tx plan and to review pt progress. Eye Contact:: Good Motor Activity:: Appropriate Appearance:: Casual Speech:: Appropriate Mood:: Euthymic and Anxious Affect:: Full Thoughts:: Circular and No evidence of hallucinations/delusions noted Staff Interventions:: CBT techniques, mindfulness skills, strengths perspective, goal setting and other Client Response:: Pt responded well to session, open to meeting with therapist. Pt reports he is noticing improvements and he is not sure if it's the meds or the therapy or both. Pt stated he does not want to give only the medication the credit as pt has been using a lot more coping skills and getting into a new routine as been helpful. Pt shared his mother is noticing a difference as well. Pt still endorses daily anxiety, avoidance, intrusive thoughts, and compulsions. Pt stated it's like my brain isn't getting constantly blasted by the thoughts, they are there but I'm not letting them bother me as much. Pt stated dismissing the thoughts and giving them less power has been helpful. Pt has been using the metaphor the bouncer at the door to help pt not engage with junk thoughts. Pt has also been doing better in session with avoiding terms like taboo and serious when describing his intrusive thoughts. Pt has recently begun driving again, but he admits his anxiety is extreme and he is unable to do any other driving besides to PHP and home. Pt completed his driving fear ladder for homework and today he is working on the first goal which is to sit in his car with it turned off and not engage in his compulsions. Pt stated instead of engaging in his compulsions he can practice self-talk and mindfulness skills. Pt shared he already knows his brain is going to tell him you hit someone but he feels he is getting better at dismissing these thoughts. Pt shared he has been using his wetzel mind thinking more often at home as well and he is gaining confidence. Risks/Concerns:: Pt denies any SI or thoughts of . Progress Toward Goals/Plan:: Pt continues to make progress towards tx goals AEB pt's consistent attendance and his engagement in group and individual sessions. Pt reports he is feeling more at ease sharing in group sessions and he is gaining confidence in his ability to manage his OCD. Pt stated his mother has noticed a change in him as well. Pt is receptive to dropping down to IOP next week. Pt will continue PHP to promote mood stability, further decrease intensity and frequency of intrusive thoughts, and improve distress tolerance skills. Time Stopped:: 12:45
--- NOTE | 2024-03-15 13:27 | BH.MDN_ITS ---
Multi-Disciplinary Note Note 60-min Individual: Time Started:: 09:05 Date: 03/15/24 Purpose of session/treatment goals addressed:: To work on goal #1 of pt's tx plan. Another goal was to discuss plan of care. Eye Contact:: Good Motor Activity:: Appropriate Appearance:: Neat Speech:: Appropriate and Rambling Mood:: Euthymic and Anxious Affect:: Full Thoughts:: Circular, Other (optimistic) and No evidence of hallucinations/delusions noted Staff Interventions:: CBT techniques, mindfulness skills, strengths perspective and other (worked on fear ladder goals and reviewed current fear ladder progress) Client Response:: Pt responded well to session, open to meeting with therapist. Pt reports feeling optimistic but also afraid that I'll crash. Pt responded well to thought challenging as well the discussion of what realistic progress looks like. Pt recognizes that he tends to be critical of himself when he has a setback because in the past when he did well I always crashed. Pt able to challenge his perspective and also identify things he can do to potentially avoiding the crash. This led to a discussion of pt's current goals around driving, work, and ERP. Pt shared he is having urges to jump ladder steps because he is feeling better than he expected he would while in PHP. Pt understands that wanting to set higher goals is normal, but for long-term benefit, pt will gain more from doing his smaller goals first and repeating them until anxiety is decreased. Pt is currently working on sitting in his car without it being on and not engaging in mental checking/checking his mirrors. Pt shared this has caused more anxiety than he thought, but he has been able to do this multiple times with success. Pt shared as soon as he sits in the car his thoughts begin saying you hit someone, you ran over someone and pt has been telling himself, that's a junk thought the car isn't even on. Pt shared he will continue to work on this until his anxiety is down from a 3/10 to a 1/10. 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 Pt's intrusive thoughts have been so severe that pt has had to stop working due to his non-stop anxiety. Pt's intrusive thoughts about work included I'm getting feces on my items, I'm sending inappropriate things with my items, and I got pee on my items. Instead of jumping back into work which pt rated a 10/10 for anxiety, pt was receptive to starting with writing letters and sending them to family/friends so he can practice sitting with the uncomfortable and not engaging in checking compulsions. This will help pt work his way up to working again. Risks/Concerns:: Pt denies any SI or thoughts of as of 03/15/24 Progress Toward Goals/Plan:: Pt continues to do well in PHP and he is recognizing a reduction in frequency and intensity of his intrusive thoughts. Pt shared his mother is also noticing a difference and pt is feeling cautiously optimistic. 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 Pt continues to be receptive to the ERP goals and he reports he is both excited to get to more challenging steps and also anxious. Pt's goal tonight is to continue working on his driving fear ladder and start his fear ladder for work. Pt will continue PHP tx for a few more sessions to further increase self-confidence in his ability to manage symptoms, reduce anxiety, and improve daily functioning. Time Stopped:: 10:05
--- NOTE | 2024-03-16 09:00 | BH.SGPN.GN ---
Behaviors/Verbalizations/Mental Status: [] Eye contact is poor. Motor activity is appropriate. Appearance is casual. Speech is Appropriate. Mood is depressed/anxious. Affect is congruent. Thoughts are linear and logical. No evidence of psychosis. Reviewed daily check in sheet and no reports of suicidal ideations or intent. Client Response/Progress/Benefit: [] Pt participated when prompted. Attentive. Daily symptom tracker notes 4/5 for depression and 3/5 for anxiety. Pt states I'm a little more depressed today. Forced myself to come in today. Insight that depressed mood is related to his program therapist not being present today to meet with him. (therapist is on vacation). According to pt I was doing so well yesterday. Concerns about regression however is able to reframe due to insight on reason for depressed mood. Increase in intrusive thoughts which made driving more challenging this AM. Benefited from group support, encouragement, and feedback. Will continue in PHP to prevent decompensation, decrease intrusive thoughts, and improve functioning. Narrative Note: []
--- NOTE | 2024-03-16 10:10 | BH.SGPN.GN ---
Behaviors/Verbalizations/Mental Status: [] Client alert and oriented, casually dressed and groomed. Eye contact good. Motor activity appropriate. Speech within normal limits. Affect congruent, mood euthymic and anxious. Thoughts linear, logical, no signs of hallucinations or delusions. Client Response/Progress/Benefit: [] Pt responded well to session AEB sharing and listening attentively to others. Group provided examples of benefits of having social support, including: validation, get assistance, and accountability. Pt also participated in group discussion regarding the barriers to accessing support including examples like: lack of trust, avoidance, and fear of vulnerability. Pt participated in experiential activity illustrating the impact communication, boundaries, and patience play in creating healthy support systems. Pt appeared to benefit from increased knowledge of the benefits of social support and greater self-awareness. Will continue IOP tx to prevent decompensation, reduce negative self-talk, and improve overall functioning. Narrative Note: []
--- NOTE | 2024-03-16 11:10 | BH.SGPN.GN ---
Behaviors/Verbalizations/Mental Status: [] Client alert and oriented, casually dressed and groomed. Eye contact good. Motor activity appropriate. Speech within normal limits. Affect congruent, mood euthymic and anxious. Thoughts linear, logical, no signs of hallucinations or delusions. Client Response/Progress/Benefit: [] Pt was an active participant throughout AEB contributing to discussion, providing personal examples, and taking notes. Pt provided input during discussion on the types of support our supports can provide. Pt able to identify current support system and barriers that get in the way of using supports. Pt reported after identifying what type of supports pt receives, pt gained awareness that pt could benefit from more social support. Pt wants to work on taking advantage of more opportunities and reach out more. Pt shared this would all around give him more stuff to do. Pt seemed to benefit from identifying the type of support pt needs to work on improving. Pt recommended to continue IOP tx to prevent decompensation, decrease obsessive thought patterns, and increase emotional regulation skills. Narrative Note: []
--- NOTE | 2024-03-16 12:05 | BH.MDN ---
Multi-Disciplinary Note Note 60-min Individual: Time Started:: 12:05 Date: 03/16/24 Purpose of session/treatment goals addressed:: To work on goal #1 and #2 of pt's tx plan. Eye Contact:: Good Motor Activity:: Appropriate Appearance:: Neat Speech:: Appropriate and Rambling Mood:: Euthymic and Anxious Affect:: Congruent Thoughts:: Logical and Circular Staff Interventions:: CBT techniques, mindfulness skills and rapport building Client Response:: Pt responded well to session, open to meeting with therapist. Pt reports feeling better as the day went on, with initially feeling down when arriving this morning for the program. PT said after driving in his car, he feels pretty heighted initially afterwards. Therapist and pt discussed his homework and symptomology. Pt indicated that overall he has been noticing positive changes with decrease in intrusive thoughts over the past two weeks. PT shared techniques of shutting down intrusive thoughts by using statements like that's junk thoughts and bouncer at the door not allowing thoughts in has helped with stopping progression of thoughts. PT shared progress with fear ladder discussing still struggling with feeling uncomfortable with sitting in car, but is willing on trying next step in ladder. PT also discussed that he plans on mailing stuff out with having family member present to observe. PT shared some concerns of intrusive thoughts never going away and fearful of intense thoughts ruining progress he will make in the future. PT discussed feelings of shame with thoughts being so taboo and different from who is he as a person. PT discussed ways he rationalizes thought patterns as logical, giving them more power. PT and this worker discussed strategies to minimize feeding into them. This worker and pt discussed mindfulness based techniques to utilize to encourage staying in the moment to deter anxious future thinking. Discussed looking at short term progress goals right now instead of focusing on the supervisor intermediates. Client indicated he will try the 5 senses when sitting in his car. Risks/Concerns:: denies any SI or thoughts of as of 03/16/24 Progress Toward Goals/Plan:: Pt continues to make progress in [facility] with notable difference in frequency of intrusive thoughts minimizing over past two week. 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 Pt is unable to drive more than to and from [facility]. Pt continues to be receptive to the ERP goals and he reports he is willing to get to more challenging steps and also anxious. Pt's goal is to continue working on his driving fear ladder and implement mindfulness techniques. Pt will continue PHP tx to further increase self-confidence in his ability to manage symptoms, reduce anxiety, and improve daily functioning. Time Stopped:: 13:16
--- NOTE | 2024-03-20 10:10 | BH.SGPN.GN ---
Behaviors/Verbalizations/Mental Status: [] Eye contact is fair. Motor activity is appropriate. Appearance is casual. Speech is Appropriate. Mood is anxious. Affect is congruent. Thoughts are linear and logical. No evidence of psychosis. Client Response/Progress/Benefit: [] Pt receptive to session AEB contributing to group discussion, as well as listening attentively to others, and taking notes. Worked with group to brainstorm the positive and negative aspects of stress on physical and mental health as well as the impact of distress on performance, relationships, and mental health. Pt shared their top stressors to be: OCD symptoms, not being able to work, and physical health. Shared when feeling overwhelmed with stress pt tends to shut down. Benefited from increased awareness of positive and negative stress as well as how stress impact individuals. Will continue in PHP to decrease anxious symptoms, increase follow through on exposure goals, and prevent decompensation.
--- NOTE | 2024-03-20 11:15 | BH.SGPN.GN ---
Behaviors/Verbalizations/Mental Status: [] Pt alert and oriented, casually dressed and groomed. Eye contact good. Motor activity appropriate. Speech within normal limits. Affect congruent, mood anxious and dysthymic. Thoughts linear, logical, no signs of hallucinations or delusions. Client Response/Progress/Benefit: [] Pt was an attentive and active participant in group discussions and experiential activity, doing well to regulate their emotions throughout the activity and work with peers. Attentive during psychoeducation on the 4 A's (Avoid, adapt, alter, accept) of coping with stress. Shared that they would benefit most from adapting the way their perspective regarding ongoing, chronic physical health issues. Was able to identify the connection between the experiential activity and utilization of stress management skills. Benefited from increased awareness of stress management strategies. Pt will d/c from PHP level of care given improved mood stability and begin IOP tx tomorrow to prevent decompensation, continue to promote progress on exposure therapy goals, and further improve daily functioning. Narrative Note: []
--- NOTE | 2024-03-20 13:19 | BH.DS ---
Discharge Summary Demographics Date of Admission:: 03/06/24 Discharge Date: 03/20/24 Presenting Problems at Admission:: Pt is a 28-year-old male with a history of OCD, ODALIS, and MDD who was referred to [facility] by his mother as pt has been significantly decompensating due to his OCD symptoms. Pt has two previous hospitalizations with the most recent being in September 2023. Pt endorses severe and constant intrusive thoughts, anxiety, and compulsions that have been hindering pt's ability to work and function. Pt endorses hit and run OCD which is keeping pt from driving due to constant fear that pt has hit someone. Pt also has intrusive thoughts that he has hurt people and that he zapien contaminated things. Pt also endorses a depressed mood with crying spells, increased appetite, increased sleep, low motivation, anhedonia, and isolation. Discharge Diagnoses:: Obsessive-compulsive disorder F 42; Major depressive disorder, recurrent, severe without psychosis; Generalized anxiety disorder Reason for Discharge:: Pt has made progress in [facility] level of care and although pt is having higher symptoms today, pt has been consistently reporting a reduction in intrusive thoughts and an improved mood. Pt will transition to [facility] level of care starting 03/21/24. Treatment Progress During Treatment & Response: Pt did well in [facility] tx AEB pt's consistent attendance, engagement in group and individual sessions, and self-report of applying coping skills. Pt reports a reduction in intrusive thoughts and engagement in compulsions both mentally and physically, and improving functioning. Issues Still to be Addressed:: Pt will continue to work on his ERP goals to reduce OCD and improve his daily functioning. Pt will also work on self-compassion and increasing self-confidence. Discharge Recommendations/Instructions:: Case discussed with team with plan to discharge from [facility] as pt no longer meets criteria for this level of care. Plan to start IOP on 03/21/24. Discharge Handout
--- NOTE | 2024-03-20 13:24 | BH.MDN_ITS ---
Multi-Disciplinary Note Note 60-min Individual: Time Started:: 12:10 Date: 03/20/24 Purpose of session/treatment goals addressed:: To work on goal#1 of pt's tx plan and to reinforce progress despite recent setback. Eye Contact:: Good Motor Activity:: Restless Appearance:: Casual Speech:: Tangential and Other (repetitive) Mood:: Anxious and Depressed Affect:: Congruent (tearful at times.) Thoughts:: Racing and Other (seeking reassurance due to increase in intrusive thoughts.) Staff Interventions:: CBT techniques, mindfulness skills, strengths perspective, taught coping skills (self-compassion and thought challenging on black and white thinking) and other (used cognitive defusion and techniques from the OCD workbook.) Client Response:: Pt responded well to session, open to meeting with therapist. Pt was tearful and shared he is mentally beating himself up for not coming in yesterday and he is having a hard time not having all or nothing thinking. Pt shared over the weekend he struggled and the intrusive thoughts came back and hit me really hard. Pt reported he had a lot of panic, crying, and engagement in compulsions over the weekend. Pt stated he has been dealing with that while also ruminating and really guilty about having a setback because he does not want IOP staff to think you guys aren't doing a good job. Pt receptive to thought challenge on black and white thinking as well as personalizing. Pt expressed frustration as well because he felt the setback happened out of nowhere but with further exploration, pt realized that even good stress is stress to the brain and can make intrusive thoughts more sticky. Pt also noted that he was worried about changing in routine going into IOP and he was having more physical pain recently which also can contribute to worsening symptoms. Pt needed more reassurance today, but he still did well when therapist encouraged him to use cognitive defusion techniques. Pt also receptive to beginning to work on writing down things he has accomplished and made progress towards. This will help pt when he has setbacks in the future and to help pt remind himself that emotions are temporary. Pt was more hopeful by the end of session, but still anxious. Pt will begin IOP tomorrow. Risks/Concerns:: Pt denies any suicidal ideations, plan, or intent. Pt denies any thoughts of . Pt's symptoms of OCD did increase over the weekend . Progress Toward Goals/Plan:: Pt presents with a setback in OCD symptoms today, but overall pt has been doing much better. Therefore, pt will still discharge from [facility] today and begin IOP tx tomorrow. Due to the severity of pt's symptoms and the progress pt made with increased individual sessions, pt will still be seen multiple times a week until his symptoms decrease more consistently. Time Stopped:: 13:10
== END 2024-03-20 13:25 | disposition home or self-care (01) ==
LOC: BHPHP 08:00
PROVIDERS: Referring Provider Psychiatry & Neurology Psychiatry; Visit Provider Psychiatry & Neurology Psychiatry
DX: F42.9 Obsessive-compulsive disorder, unspecified (principal); F33.2 Major depressive disorder, recurrent severe without psychotic features; F41.9 Anxiety disorder, unspecified
CPT/HCPCS: H0035; 90834; 90837; G0410

== ENCOUNTER 2024-03-21 08:00 | Outpatient (RCR) | payer MEDICARE, MEDICAID, SELFPAY ==
--- NOTE | 2024-03-20 09:05 | BH.SGPN.GN ---
Behaviors/Verbalizations/Mental Status: [] Pt alert and oriented, neatly dressed and groomed. Eye contact good. Motor activity restless. Speech within normal limits. Affect congruent, mood anxious. Thoughts linear, logical, no signs of hallucinations or delusions. Reviewed pt?s symptom tracker, no risk for suicidal ideation, plan, or intent 03/20/24 Client Response/Progress/Benefit: []t responded well to session, attentive and engaged. Pt shared feeling optimistic this morning as pt feels he is bouncing back from a rough night and he is willing to keep working towards his goals. Pt's mental health wins include using opposite action when he wanted to isolate and trying to challenge negative thoughts today. Pt's stressor is he is in pain today and when he has more pain he has more intrusive thoughts typically. Pt receptive to feedback from peers on how to use positive thinking.Pt appeared to benefit from reflecting on gains and connecting with peers. Pt will continue IOP tx to prevent decompensation, increase distress tolerance skills, and improve daily functioning. Narrative Note: []
--- NOTE | 2024-03-21 09:00 | BH.SGPN.GN ---
Behaviors/Verbalizations/Mental Status: [] Eye contact is good. Motor activity is appropriate. Appearance is casual. Speech is Appropriate. Mood is anxious. Affect is congruent. Thoughts are linear and logical. No evidence of psychosis. Reviewed daily check in sheet and no reports of suicidal ideations or intent. Client Response/Progress/Benefit: [] Pt participated at times during the group discussion. Attentive. Daily symptom tracker notes 2/5 for depression and 3/5 for anxiety. Able to identify mental health wins which include beginning to ?bounce back? from a recent influx in intrusive thoughts. Noted that he did not stay fixated on these thoughts near as long as he would have in the past. Additional win noted as successfully completing a small exposure goal with his individual therapist this morning. Shared feeling less anxious than expected in doing so. He shared recent stressor as? ongoing physical health issues but did well to identify several things within his control to keep making progress in this area as well. Progress noted. Benefited from group support, encouragement, and feedback. Will continue in IOP to prevent decompensation, stabilize mood, and increase healthy coping. Narrative Note: []
--- NOTE | 2024-03-21 10:10 | BH.SGPN.GN ---
Behaviors/Verbalizations/Mental Status: [] Client alert and oriented, casually dressed and groomed. Eye contact good. Motor activity appropriate. Speech within normal limits. Affect congruent, mood euthymic and anxious. Thoughts linear, logical, no signs of hallucinations or delusions. Client Response/Progress/Benefit: [] Client was an active participant AEB contributing to discussion, taking notes, and engaging in group activity. Connected with the topic of pitfalls and listened to group discussion on barriers that prevent from choosing a healthier path to mental wellness. Group worked together to identify examples of personal pitfalls which included; isolation, avoidance, making excuses, denial, distortions, and unhealthy coping. Client identified falling out of routines and entertaining intrusive thoughts as personal pitfalls that have inhibited progress in the past. Client benefited from group as client learned to better identify potential barriers to improving mental health symptoms. Client will continue IOP tx to prevent decompensation, gain healthy support, and improve daily functioning. Narrative Note: []
--- NOTE | 2024-03-21 11:04 | PCM.BH.PN_ITS ---
Progress Note Progress Note: History of Present Illness/Interim History: The patient is a 28-year-old single male with a history of OCD and depression who is seen in follow-up at the [facility] PHP program. I last saw the patient 1 week ago and the patient states that he feels much better since starting the program and feels that he is gaining insight and learning skills valuable in helping him with his mental health issues. He especially is enjoying doing some mix Maritza therapy for his intrusive thoughts and he states that these intrusive thoughts have lessened in intensity and quantity as he is able to deflect them better. He is still unable to drive because of his intrusive thoughts about running someone over. He would like to begin working again soon and is working on a plan with his counselor to do that. He has been on disability since August 2019 for chronic back pain and has a history of ankylosing spondylitis and thyroid cancer in September 2021 which is in remission. No alcohol use since July or August and is decreasing his marijuana use. He states he is still a little depressed but his symptoms overall have lessened. He is attempting to ruminate less about his intrusive thoughts. He is sleeping about 8 or 9 hours a night and is napping less during the day. He denies passive thoughts of , suicidal ideation, plan for suicide, homicidal ideation, hallucinations or delusions. His panic attacks are down to less than or equal once a week now which is less than when he started the program. He is tolerating the medications well. Current Psychiatric Medications: [] Luvox 150 mg p.o. daily (increased 6 days ago by his outpatient provider); Latuda 80 mg p.o. daily with food; Lamictal 150 mg p.o. daily; trazodone 50 mg p.o. nightly as needed for sleep; levothyroxine 25 mcg p.o. daily. Mental Status Examination: [] The patient is a 28-year-old male who appears normal for stated age and has a transverse scar on his neck. He is ambulatory with a normal gait and is casually dressed and groomed with good hygiene. He is cooperative and pleasant during the interview and has no psychomotor agitation or retardation. Speech is normal rate and rhythm and fluent with no pressure and eye contact is good. Mood is depressed. Affect is full and normal. Thought process is goal-directed and organized. 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 There is no evidence of passive thoughts of , plan for suicide, suicidal ideation, homicidal ideation, hallucinations or delusions. Reality testing is intact. Judgment is intact. Insight is good. Impulsivity is moderate. Diagnoses: [] 1. Obsessive-compulsive disorder 2. Major depressive disorder, recurrent, severe without psychosis (improving) 3. Generalized anxiety disorder 4. Chronic back pain 5. Ankylosing spondylitis 6. History of thyroid cancer currently in remission 7. THC use disorder 8. Primary support and work issues Plan: [] The patient will stepdown to IOP as his condition has improved. He felt safe during the interview and if it anytime he does not feel safe he agrees to let us know or go to the emergency room. The risk, options, possible complications and side effects of the medication were again discussed with the patient and he understands accepts these. No medication changes were made today as they were recently changed. He will continue to follow-up with his outpatient providers and I will see the patient in follow-up in several weeks. Prescriptions were sent in as refills for his Luvox and his trazodone.
--- NOTE | 2024-03-21 11:10 | BH.SGPN.GN ---
Behaviors/Verbalizations/Mental Status: [] Client alert and oriented, casually dressed and groomed. Eye contact good. Motor activity appropriate. Speech within normal limits. Affect congruent, mood anxious and euthymic. Thoughts linear, logical, no signs of hallucinations or delusions. Client Response/Progress/Benefit: [] Client receptive of session, engaged throughout AEB client actively listening and contributing to discussion as well as taking notes.? Client participated in the experiential activity and did well to communicate ideas with peers and manage emotions. Client attentive as group processed how the emotions and perspective of the group impacted the activity. Group worked together to identify different coping skills to help manage pitfalls. Client identified pitfall they struggle with as entertaining intrusive thoughts. Client plans to work on their pitfall by utilizing grounding techniques. Benefited from identifying personal pitfalls and strategies to overcome these pitfalls. Will continue IOP tx to prevent decompensation, improve self-care and emotion regulation. Narrative Note: []
--- NOTE | 2024-03-21 11:10 | BH.DR.ITP ---
Initial Treatment Plan Patient Information Visit Information: ADMISSION DATE: EXPECTED LOS: 4-6 weeks Problems/Symptoms Problem #1:: Anxiety Symptom:: Worry, rumination, panic attacks, intrusive thoughts with checking rituals Problem #2:: Depression Symptom:: Sadness, guilt, low energy, decreased concentration, anhedonia
--- NOTE | 2024-03-21 14:19 | BH.MDN ---
Multi-Disciplinary Note Note 60-min Individual: Time Started:: 12:10 Date: 03/21/24 Purpose of session/treatment goals addressed:: To work on goal #2 of pt's tx plan and to review IOP goals and plan. Eye Contact:: Good Motor Activity:: Appropriate Appearance:: Casual Speech:: Tangential Mood:: Anxious, Depressed and Other (hopeful) Affect:: Congruent (tearful at times.) Thoughts:: Other (ruminating ) and No evidence of hallucinations/delusions noted Staff Interventions:: thought challenging, CBT techniques, mindfulness skills, strengths perspective, goal setting, taught coping skills (accomplishment log) and other (discussed social support building) Client Response:: Pt responded well to session, open to meeting with therapist. Pt reports feeling less anxious today and that his intrusive thoughts are less intense. Pt felt that being back in therapy and having a concrete plan for the next few weeks helped reduce his anxiety and re-center pt to his tx goals. Pt did well with his exposure goals this morning which was pt writing short notes for the staff without re-reading them or asking for reassurance if he wrote something bad. Pt is working on this goal to help pt gain confidence and sit with the uncomfortable to reduce compulsions. 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 Pt shared this goal makes him anxious, but he noted that he felt proud of himself for not giving into his compulsions and he will do this again tomorrow. Pt asked if he could bring up something that he has not yet discussed in sessions which is pt's fear of rejection and low self-esteem. Pt became tearful and shared that he is down on himself for being so behind in life which to pt means not being , having kids, or having a house. Pt shared he is less critical of himself than what he used to be, but he still struggles with self-deprecating and hopelessness that he will not find someone. Pt receptive to thought challenging and able to see things in his control that pt could change that could produce better connection results for pt. Pt also receptive to working on giving himself more credit and acceptance skills. Pt also open to exploring different social groups and different ways pt could get connected with people. Pt will continue working on his accomplishment log for homework. Risks/Concerns:: Pt denies any suicidal ideations, plan, or intent as of 03/21/24. Pt denies any thoughts of . Progress Toward Goals/Plan:: Pt's first day of IOP tx following two weeks of PHP. Pt's symptoms are improving and he is still reporting anxiety, intrusive thoughts, and depressive thought patterns, but he is much less anxious compared to yesterday. Pt's intrusive thoughts were much less intense during session which gave pt the opportunity to talk about other goals he wanted to address including low self-esteem, limited social support, and fear of rejection. Pt receptive to goals made in session and pt will continue IOP tx to promote mood stability, increase distress tolerance skills, and improve daily functioning. Time Stopped:: 13:10
--- NOTE | 2024-03-21 21:48 | BH.MTP ---
Master Treatment Plan Patient Information Program Physician:: Dr. Karma Dodd Primary Therapist:: Ely OVIEDO Psychiatric Diagnoses Psychiatric Diagnoses:: Obsessive-compulsive disorder F 42; Major depressive disorder, recurrent, severe without psychosis; Generalized anxiety disorder Diagnosis Code(s):: F42 Estimated LOS Estimated LOS (in weeks):: 7 Problem/Goal #1 Problem/Goal #1 Stated Goal:: Pt will reduce overall frequency and intensity of anxiety and OCD symptoms so that daily functioning is less impaired. Description of Barriers: Limited social support, pt is gaining skills but he still very codependent on external supports to help reduce OCD symptoms, and he reports low self-esteem. Pt also is not currently able to work which was a source of passion and purpose in pt's life. Functional Impact: Pt is a 28-year-old male with a history of OCD, ODALIS, and MDD who was referred to [facility] by his mother as pt has been significantly decompensating due to his OCD symptoms. Pt has two previous hospitalizations with the most recent being in September 2023. Pt endorses severe and constant intrusive thoughts, anxiety, and compulsions that have been hindering pt's ability to work and function. Pt endorses hit and run OCD which is keeping pt from driving due to constant fear that pt has hit someone. Pt also has intrusive thoughts that he has hurt people and that he has contaminated things. Pt also endorses a depressed mood with crying spells, increased appetite, increased sleep, low motivation, anhedonia, and isolation. Pt recently completed the PHP program at [facility] and has transitioned to [facility] level of care. Goal Relevant Strengths/Supports: Pt has strong support from his mother, he is on disability which gives pt some income while he cannot work, and he has a psychiatrist. Pt also completed PHP and showed progress during that time. Objectives Objective #1: Stated Objective: Pt will improve ability to cope with OCD symptoms and reduce avoidance by setting 1-2 small exposure goals each week. Interventions: Through group and individual therapy, pt will gain skills on distress tolerance and sitting with the uncomfortable. Therapist will help pt set small, realistic exposure goals each week. Therapist will have pt practice these goals both in session and at home. Therapist will provide psychoeducation on why this is important to reducing anxiety, OCD, and phobias. Therapist will also provide psychoeducation on intrusive thinking and reducing safety behaviors. Discharge Criteria: Pt will have accomplished this goal when pt can report accomplishing at least 1 exposure goal per week and can report reduced avoidance overall. Target Date: 05/09/24 Review Date: 04/11/24 Status: open Objective #2: Stated Objective: Pt will identify 2-3 anxiety and OCD triggers and 2 coping skills to use to manage anxiety and to reduce DSM-5 scores. Interventions: Through group and individual sessions, pt will gain awareness of anxiety and OCD triggers and learn numerous techniques to manage anxiety and OCD symptoms. Therapist will teach mindfulness and other calming techniques to manage symptoms and increase distress tolerance skills. Therapist will also help pt utilize mindfulness skills to sit with the uncomfortable to increase confidence in managing triggers. Discharge Criteria: Pt will have met this goal when pt can identify at least 2 triggers and 2 ways to cope with anxiety and OCD and when his DSM-5 scores have reduced. Target Date: 05/09/24 Review Date: 04/11/24 Status: open Problem/Goal #2 Problem/Goal #2 Stated Goal:: Pt will decrease depressive symptoms, hopelessness, excessive guilt, worthlessness, and negative self-talk. Description of Barriers: Limited social support, pt is gaining skills but he still very codependent on external supports to help reduce OCD symptoms, and he reports low self-esteem. Pt also is not currently able to work which was a source of passion and purpose in pt's life. Functional Impact: Pt is a 28-year-old male with a history of OCD, ODALIS, and MDD who was referred to [facility] by his mother as pt has been significantly decompensating due to his OCD symptoms. Pt has two previous hospitalizations with the most recent being in September 2023. Pt endorses severe and constant intrusive thoughts, anxiety, and compulsions that have been hindering pt's ability to work and function. Pt endorses hit and run OCD which is keeping pt from driving due to constant fear that pt has hit someone. Pt also has intrusive thoughts that he has hurt people and that he has contaminated things. Pt also endorses a depressed mood with crying spells, increased appetite, increased sleep, low motivation, anhedonia, and isolation. Pt recently completed the PHP program at [facility] and has transitioned to [facility] level of care. Goal Relevant Strengths/Supports: Pt has strong support from his mother, he is on disability which gives pt some income while he cannot work, and he has a psychiatrist. Pt also completed PHP and showed progress during that time. Objectives Objective #1: Stated Objective: Pt will learn and utilize 2-3 healthy coping strategies to better manage depressive symptoms as shown by a decrease of DMS-5 symptoms for depression. Interventions: Through group and individual sessions, therapist will help pt identify triggers and warning signs of depression and guilt including emotional, physical, and behavioral changes. Therapist will teach pt various coping skills to manage symptoms and give pt tangible resources to use to regulate emotions. Therapist will use cognitive restructuring techniques and help pt gain awareness of negative thoughts that reinforce guilt and depression. Therapist will provide psychoeducation on maintenance cycles and help pt learn ways to break unhealthy maintenance cycles. Therapist will help pt incorporate behavioral activation and assist pt in setting SMART goals. Discharge Criteria: Pt will have met this goal when can report learning and using at least 2 coping skills to manage depressive symptoms and reduce isolation. Additionally, pt will have met this goal when pt's DSM-5 scores for depression decrease. Target Date: 05/09/24 Review Date: 04/11/24 Status: open Objective #2: Stated Objective: Pt will identify at least 2-3 negative self-talk messages used to reinforce negative core beliefs, worthlessness, and guilt and replace thoughts with balanced, realistic messages. Interventions: Therapist will help pt identify distorted, negative beliefs about self and replace with more realistic, affirmative messages. Therapist will use CBT and DBT to help pt increase insight to the connection between thoughts, emotions, and behaviors. Therapist will encourage pt to practice thought challenging. Discharge Criteria: Pt will have achieved this goal when can verbalize at least 2 cognitive distortions and effectively replace those thoughts with affirmative messages. Target Date: 05/09/24 Review Date: 04/11/24 Status: open
--- NOTE | 2024-03-22 09:05 | BH.SGPN.GN ---
Behaviors/Verbalizations/Mental Status: [] Eye contact good. Motor activity appropriate. Speech within normal limits. Affect congruent, mood content. Thoughts linear, logical, no signs of hallucinations or delusions. Reviewed client?s symptom tracker, pt denies SI,?plan, or intent as of 03/22/2024. Client Response/Progress/Benefit: [] Client receptive of session, attentive and willing to process with group. ?Identified mental health ?win as following-through with goals to take his dogs out for a walk and spend time in nature. Shared finding this enjoyable and plans to continue to do this on a more consistent basis. Additional win recognized as using opposite action to clean his room. Stressor noted as ongoing chronic physical pain issues. Receptive of and appearing to benefit from group support. Recommended continued IOP tx to improve mood stability, promote consistent skill application, well as prevent decompensation. Narrative Note: []
--- NOTE | 2024-03-22 10:10 | BH.SGPN.GN ---
Behaviors/Verbalizations/Mental Status: [] Eye contact is fair. Motor activity is appropriate. Appearance is casual. Speech is Appropriate. Mood is anxious. Affect is constricted. Thoughts are linear and logical. No evidence of psychosis. Client Response/Progress/Benefit: [] Pt engaged participant AEB listening to others, engaging in activity, and providing feedback at times. Attentive during psychoeducation and provided insight into obstacles that impede mental wellness. Pt chose to not share with group current mental health reality and desired mental health reality. Did appear attentive to others that shared. Identified barriers to desired reality include: lack of motivation, fear of failure, and poor self-image. Benefited from taking look at current mental health state and obstacles for progress. Pt to continue IOP tx to decrease anxious safety behaviors, improve confidence, and prevent decompensatiom
--- NOTE | 2024-03-22 11:15 | BH.SGPN.GN ---
Behaviors/Verbalizations/Mental Status: []Eye contact is good. Motor activity is appropriate. Appearance is casual. Speech is Appropriate. Mood is anxious and euthymic. Affect is congruent. Thoughts are linear and logical. No evidence of psychosis. Client Response/Progress/Benefit: []Pt was an engaged participant in group discussion and activity. Worked with group to identify strategies to help overcome barriers and obstacles to desired reality. Group developed strategies for the common barriers. Identified personal barriers to desired reality and choose one obstacle to work. Pt stated pt wants to work on barrier of personalization by thought challenging and reminding himself that not all thoughts are facts. Pt seemed to benefit from increased repertoire of healthy coping skills/strategies to overcome common barriers to moving forward. Pt is to continue IOP to prevent decompensation, increase use of distress tolerance skills, and increase self-confidence. Narrative Note: []
--- NOTE | 2024-03-22 13:41 | BH.MDN_ITS ---
Multi-Disciplinary Note Note 45-min Individual: Time Started:: 12:10 Date: 03/22/24 Purpose of session/treatment goals addressed:: To work on goal #2 of pt's tx plan. To help pt combat negative thoughts in the moment. Eye Contact:: Good Motor Activity:: Appropriate Appearance:: Neat Speech:: Appropriate Mood:: Euthymic and Anxious Affect:: Congruent (tearful) Thoughts:: Linear, Logical and No evidence of hallucinations/delusions noted Staff Interventions:: thought challenging, motivational interviewing, CBT techniques, strengths perspective, goal setting and other (personal bill of rights.) Client Response:: Pt responded well to session, open to meeting with therapist. Pt quickly became tearful during session because there was something pt wanted to do in his personal life and he was too afraid to do it. Pt stated he is lonely and has been having negative thoughts like I'm so far behind everyone my age, I'm not and don't have kids. Pt shared he has been wanting to ask someone for their number, but pt has been turned down several times, so he believes that I'll never find someone because I have so much evidence. Pt receptive to thought challenging and discussion setting realistic goals for forming social connections. Pt stated that the people he has asked for their numbers in the past have been strangers, so pt was able to see that the likelihood of a stranger saying yes to this is very low. Because that is most of pt's experience, it is true pt always gets rejected, but pt recognized that this is not setting him up for success. Processed pt's emotions and discussed how to make lasting social connections. Pt receptive to this and recognizes that social connections do not just happen immediately, it takes getting to know someone and being vulnerable. Pt appeared to benefit from this kind of thought c hallenging as pt's perspective began to shift and he was more willing to set goals regarding social support. Pt's mood became more content and he was able to set goals for the day including reaching out this medical providers and planning to read to personal bill of rights. Risks/Concerns:: Pt denies any active SI, plan, or intent as of 03/22/24. Pt denies any thoughts of . Progress Toward Goals/Plan:: Pt is showing progress with his exposure goals, but he is reporting feeling more down on himself and noticing his low self-esteem is becoming more of a problem. Pt receptive to thought challenging in session and working on increasing his social connections. Pt's anxiety and depression continue to impact his daily functioning and his ability to drive and work. Pt will continue IOP tx to prevent decompensation, increase self- confidence, and improve daily functioning. Time Stopped:: 13:00
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
--- NOTE | 2024-03-23 10:10 | BH.SGPN.GN ---
Behaviors/Verbalizations/Mental Status: []Patient was alert and oriented, casually dressed and groomed. Eye contact was good, motor activity restless, speech within normal limits. Affect congruent, mood anxious. Thoughts linear, logical, no signs of hallucinations or delusion Client Response/Progress/Benefit: []Pt participated in the group discussions AEB nodding and taking notes. Attentive during psychoeducation Goal Setting. Participated during the discussion on common barriers and pt identified some personal barriers as fear of failure and lack of motivation. Group also identified benefits of goals as sense of purpose, improved self-confidence, more motivation for other goals, and improved mental health. Pt?s personal benefit was increasing self-confidence. Benefited from increased awareness of mental health benefits of goals as well as psychoeducation on SMART goal criteria. Will continue in IOP to prevent decompensation, improve daily functioning, and increase self-confidence. Narrative Note: []
--- NOTE | 2024-03-23 11:10 | BH.SGPN.GN ---
Behaviors/Verbalizations/Mental Status: []Pt alert and oriented, casually dressed and groomed. Eye contact good. Motor activity appropriate. Speech within normal limits. Affect congruent, mood anxious and euthymic. Thoughts linear, logical, no signs of hallucinations or delusions. Client Response/Progress/Benefit: [] Pt was engaged during discussion and willing to complete the worksheet challenging them to develop a personal SMART goal. Pt chose the goal of reducing severity of OCD exposure response sx by 2 points in the next week. Pt stated loss of confidence as a potential barrier. Identified solution as wins journal and positive self-talk. Benefited from this group by developing a short-term SMART goal related to mental health. Will continue IOP tx to increase consistent use of healthy coping skills, challenge distortions, and prevent decompensation. Narrative Note: []
--- NOTE | 2024-03-23 15:51 | BH.MDN ---
Multi-Disciplinary Note Note 60-min Individual: Time Started:: 12:05 Date: 03/23/24 Purpose of session/treatment goals addressed:: To work on goal #2 of pt's tx plan. Eye Contact:: Good Motor Activity:: Appropriate Appearance:: Casual Speech:: Rambling Mood:: Euthymic and Anxious Affect:: Congruent Thoughts:: Linear, Logical and No evidence of hallucinations/delusions noted Staff Interventions:: thought challenging, CBT techniques, mindfulness skills, strengths perspective, goal setting and other (Accomplishment log) Client Response:: Pt responded well to session, open to meeting with therapist. Pt was smiling and proud of himself because he was engaging more with peers today in group which is something pt has been too anxious to do. Pt has been more open about other issues that have contributed to his mental health decompensation, one being lack of support and socialization. Pt is working to be more social and step out of his comfort zone so he can meet new people and practice social skills. Pt plans to work on small talk and being more social every time he comes to [facility]. Pt completed homework from yesterday which was to identify things he connected with on the personal bill of rights handout. Pt shared he feels that he is finally at a point where I want it more than I'm afraid. Pt is open to finding things he can do socially in his home town as well. Pt continues to struggle with all or nothing thinking when it comes to making connections and setting goals for socializing. Discussed small goals and pt was receptive to this. Pt shared his intrusive thoughts have decreased from the beginning of the week, but they are still trying to get through. Pt has responded well to the exposure goals of the week which included pt writing notes to [facility] staff without re-reading and seeking reassurance. 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 Risks/Concerns:: Pt denies any SI or thoughts of . Progress Toward Goals/Plan:: Pt dropped down from [facility] to [facility] on 03/21/24 and he has been doing well. It appears that pt's anxiety and intrusive thoughts are at their highest at the beginning of the week and then decrease by the end of the week. Pt is becoming more receptive to being more social and he challenged himself to engage more with peers today in group which was progress. Pt will continue [facility] tx to promote mood stability, increase distress tolerance skills, and increase self-confidence. Time Stopped:: 13:00
--- NOTE | 2024-03-26 09:00 | BH.SGPN.GN ---
Behaviors/Verbalizations/Mental Status: [] Eye contact is good. Motor activity is appropriate. Appearance is casual. Speech is Appropriate. Mood is anxious/depressed. Affect is congruent. Thoughts are linear and logical. No evidence of psychosis. Reviewed daily check in sheet and no reports of suicidal ideations or intent. Client Response/Progress/Benefit: [] Pt was an active participant in group discussion. Attentive. Daily symptom tracker notes 08/08 for depression/anxiety and 07/08 for irritability. According to pt No major wins over the weekend mainly isolated. However on Tuesday he reached out to family and suggested they go out. While out he worked on some exposure goals for his OCD/intrusive thoughts which overall increased his confidence. Being in public can be challenging for pt stating he feels others are judging him. Insight on skills and reframing to use however it's difficult with all my thoughts. Emotion for today is disappointed. Benefited from group support, encouragement, and feedback. Will continue in IOP to prevent decompensation, decrease intrusive thoughts, and improve functioning. Narrative Note: []
--- NOTE | 2024-03-26 10:15 | BH.SGPN.GN ---
Behaviors/Verbalizations/Mental Status: []Client alert and oriented, casually dressed and groomed. Eye contact good. Motor activity appropriate. Speech within normal limits. Affect congruent, mood anxious and content. Thoughts linear, logical, no signs of hallucinations or delusions. Client Response/Progress/Benefit: [] Pt was an attentive an active participant, AEB taking notes and providing input in group discussion when prompted. Attentive during psychoeducation. Pt engaged during interactive discussion in which the group defined self-care and discussed its benefits. Group discussed barriers to engaging in self-care. Group members together came up with guilt, time, ?people pleasing?, not knowing what to do, and perception that its unproductive as barriers to engage in self-care. Pt stated their personal barrier is feeling like ?I always have to put others first.? Pt participated in small groups where they worked to identified and challenged common self-care ?myths?. Benefited from increased awareness of self-care, its benefits, and the consequences of not utilizing self-care strategies. Will continue IOP tx to promote mood stability, increase self-confidence, and improve daily functioning. Narrative Note: []
--- NOTE | 2024-03-26 11:18 | BH.SGPN.GN ---
Behaviors/Verbalizations/Mental Status: [] Client alert and oriented, casually dressed and groomed. Eye contact good. Motor activity appropriate. Speech within normal limits. Affect congruent, mood anxious and euthymic. Thoughts linear, logical, no signs of hallucinations or delusions. Client Response/Progress/Benefit: []Client engaged in discussion reviewing different areas of self-care and completing self-assessment of current self care, as well as providing input throughout discussion. Did well to complete self-care self-assessment worksheet. Client identified current self-care practices and what self-care activities client wants to start using. Client selected emotional self-care to begin practicing more consistently. Client plans to do this by challenging himself to engage in grounding activities more consistently. Appeared to benefit from completing the self-care evaluation and gaining insights into current self-care practices, as well as identifying areas in which client would like to improve upon. Client will continue IOP tx to prevent decompensation, improve mood stability, and increase healthy coping repertoire. Narrative Note: []
--- NOTE | 2024-03-26 14:50 | BH.MDN ---
Multi-Disciplinary Note Note 60-min Individual: Time Started:: 12:05 Date: 03/26/24 Purpose of session/treatment goals addressed:: To work on a daily routine and to challenge distorted thinking patterns. Eye Contact:: Good Motor Activity:: Appropriate Appearance:: Casual Speech:: Appropriate Mood:: Euthymic and Anxious Affect:: Congruent Thoughts:: Circular and No evidence of hallucinations/delusions noted Staff Interventions:: thought challenging (challenged all or nothing thinking.), motivational interviewing, CBT techniques, mindfulness skills, strengths perspective, goal setting and other (setting up a routine for his day off of IOP.) Client Response:: Pt responded well to session, open to meeting with therapist. Weekends continue to be challenging for pt both physically and emotionally due to lack of routine and structure. Pt has shared multiple times that he is surprised by how much he enjoys the routine of IOP, but pt is having a hard time applying this to his outside life. Pt receptive to setting a goal for tomorrow to give him some structure. Pt shared one barrier he is experiencing is his all or nothing thinking. Pt stated he is telling himself that scheduling one thing isn't enough because it's only one hour. Pt responded well to thought challenging and seeing how one thing can positively impact pt for the rest of the day. Pt sees this happen when he comes to [facility], his mood is improved even after he leaves. Pt's goal for tomorrow is to walk his dog after he eats/drinks coffee and before lunch. Discussed benefits to this goal and barriers as well as problem-solved barriers. Pt shared he has a habit of talking himself out of things because he will overthink or he will become overwhelmed and shut down. Pt receptive to the idea of quick transitions and having visible cues to help encourage and remind pt. Pt shared he used to be big on to-do lists and he thinks he will benefit from sticky notes. Pt left session somewhat more optimistic with the understanding that tomorrow will be an adjustment from his usual routine. Risks/Concerns:: Pt denies any suicidal ideations, plan, or intent as of 03/26/24. Progress Toward Goals/Plan:: Pt is making progress towards his tx goals AEB his consistent attendance, report of benefitting from group topics, and using healthy coping skills more consistently. However, pt is struggling with establishing routine and using opposite at home. Pt was receptive to the routine established today and understands that he does not need to plan his day too rigidly. Tomorrow will be pt's first planned day off from IOP tx and pt is anxious. Pt will continue IOP tx to prevent decompensation, improve daily functioning, and increase self-confidence. Time Stopped:: 13:05
--- NOTE | 2024-03-27 09:00 | BH.SGPN.GN ---
Behaviors/Verbalizations/Mental Status: [] Eye contact is good. Motor activity is appropriate. Appearance is casual. Speech is Appropriate. Mood is anxious. Affect is congruent. Thoughts are linear and logical. No evidence of psychosis. Reviewed daily check in sheet and no reports of suicidal ideations or intent. Client Response/Progress/Benefit: [] Pt was an active participant in group discussions. Attentive. Daily symptom tracker notes / for depression and anxiety. Shared with the group that he has starting to work on daily routines to help with his depression. Insight that behavior activation, opposite-action, and purpose will help decrease ruminations, isolation, and stagnant behaviors. Also making an conscious effort to not seek reassurance from others. Insight on the negative effects of reassurance seeking for intrusive thoughts. Emotion for today is optimistic. Continues to report intrusive thoughts daily which impact his functioning however can identify progress since entering IOP. Progress noted. Benefited from group support, encouragement, and feedback. Will continue in IOP to prevent decompensation, decrease intrusive thoughts, and improve functioning. Narrative Note: []
--- NOTE | 2024-03-27 10:10 | BH.SGPN.GN ---
Behaviors/Verbalizations/Mental Status: [] Eye contact is good. Motor activity is appropriate. Appearance is casual. Speech is Appropriate. Mood is anxious. Affect is congruent. Thoughts are linear and logical. No evidence of psychosis. Client Response/Progress/Benefit: [] Pt did well to participate in activity and was engaged and attentive during psychoeducation and interactive discussion on coping skills, why people use unhealthy coping skills, how to replace unhealthy coping skills, and internal vs external coping skills. Attentive as peers came up with list of negative coping skills including not asking for help, avoidance, isolating, sleeping, shopping, substance use, and several others. Pt stated he had been using napping as a coping skill because it helped him escape, however recognized this was not making him better. Stated he recently has been putting more effort into not allowing himself to nap. Group discussed the effects of how negative coping skills can impact mental health in a negative way. Benefited from increased understanding of unhealthy coping skills and the need for developing healthy internal and external coping skills. Will continue in IOP to continue working on exposure goals, challenge negative thoughts, and prevent decompensation.
--- NOTE | 2024-03-27 11:10 | BH.SGPN.GN ---
Behaviors/Verbalizations/Mental Status: []Pt alert and oriented, casually dressed and groomed. Eye contact good. Motor activity appropriate. Speech within normal limits. Affect congruent, mood anxious. Thoughts linear, logical, no signs of hallucinations or delusions. Client Response/Progress/Benefit: [] Pt responded well to session, taking notes and contributing when prompted. Group discussed the different categories of coping skills which included distraction, emotional release, grounding, self-love, and thought challenging. Pt participated in creating a coping skills ?menu? from the five categories of coping skills. Pt's coping skill menu included: crying, TV, taking meds, 5-senses, sticking to a routine, and opposite action to be social. Appeared to benefit from increasing repertoire of healthy coping skills. Will continue IOP to improve mood stability, increase distress tolerance, and prevent decompensation. Narrative Note: []
--- NOTE | 2024-03-27 13:47 | BH.MDN ---
Multi-Disciplinary Note Note 45-min Individual: Time Started:: 12:10 Date: 03/27/24 Purpose of session/treatment goals addressed:: To work on goal #2 of pt's tx plan and to increase behavioral activation. Eye Contact:: Fair Motor Activity:: Appropriate Appearance:: Casual Speech:: Tangential Mood:: Depressed Affect:: Constricted Thoughts:: Circular and Other (self-deprecating.) Staff Interventions:: thought challenging, motivational interviewing, CBT techniques, strengths perspective and goal setting Client Response:: Pt responded well to session, open to meeting with therapist. Pt shared he did not accomplish his goal for his day off of IOP and he feels disappointed in himself. Pt stated he meant to wake up early and he was going to walk his dogs, but he woke up very late and then he told himself that the day was ruined and I can't do my goal now. Pt has awareness that his distorted thought patterns are a barrier to his progress with routine building as pt becomes rigid with his expectations so when it does not go as planned, pt shuts down and does nothing per his report. Pt receptive to making sticky notes in session to hang up throughout his house for the next day he is not at IOP. Pt's sticky notes included statements like I can start at any time and just because it's later doesn't mean I can't do it. Pt shared it would be helpful for him to put these somewhere easy to see so he has to read them before choosing isolation. Pt has also shared in the past how much he benefits from sitting outside, so pt was encouraged to do this today as well. Ended session by acknowledging progress pt has made as pt struggles with seeing progress when he feels low or disappointed in himself. Pt noted progress in his ability to reduce his compulsion of re-reading when he writes his daily messages to IOP staff and pt feels ready to move up his fear ladder with driving. Risks/Concerns:: Denies any suicidal ideations, plan, or intent as of 03/27/24. Pt denies thoughts of . Progress Toward Goals/Plan:: Pt is making progress towards his tx goals AEB his consistent attendance, report of benefitting from group topics, and using healthy coping skills more consistently. However, pt is struggling with establishing routine and using opposite at home. Pt also struggles with challenging distortions that reinforce isolation and avoidance without external support. Pt is showing progress with his exposure goals while at IOP and he will continue to work on writing notes and giving them to staff without re-reading to increase distress tolerance skills. Pt will continue IOP tx to prevent decompensation, improve daily functioning, and increase self-confidence. Time Stopped:: 13:00
--- NOTE | 2024-03-29 09:05 | BH.SGPN.GN ---
Behaviors/Verbalizations/Mental Status: [] Eye contact good. Motor activity appropriate. Speech within normal limits. Affect congruent, mood content and anxious. Thoughts linear, logical, no signs of hallucinations or delusions. Reviewed client?s symptom tracker, pt denies SI,?plan, or intent as of 03/29/2024. Client Response/Progress/Benefit: [] Client receptive of session, attentive and willing to process with group. Reports improving sx of depression?(1/5) and agitation (1/5) per daily sx tracker. ?Identified mental health ?alan as doing well to reduce his engagement in morning ritual behaviors prior to leaving for IOP tx. Shared using opposite action, sitting with the uncomfortable, and evidence again these urges for assistance. Additional alan noted as successfully driving to IOP tx without engaging in any reassurance seeking regarding his intrusive thoughts. Did well to give himself credit for this as well. Stressor continues to be chronic pain, though self-reports improved ability to cope today. Receptive of and appearing to benefit from group support. Recommended continued IOP tx to maintain mood stability, promote consistent skill application, well as prevent decompensation. Narrative Note: []
--- NOTE | 2024-03-29 10:10 | BH.SGPN.GN ---
Behaviors/Verbalizations/Mental Status: [] Eye contact is good. Motor activity is appropriate. Appearance is casual. Speech is Appropriate. Mood is anxious and content. Affect is congruent. Thoughts are linear and logical. No evidence of psychosis. Client Response/Progress/Benefit: [] Pt receptive to session AEB listening attentively to others and taking notes. Pt attentive and contributing throughout psychoeducation on the cognitive triangle and maintenance cycles. Pt engaged during group discussion reviewing the impact of daily activities and behaviors in either reinforcing unhealthy maintenance cycles and depression or assisting in reducing symptoms (?down? vs ?up? activities). Pt identified personal ?down? activities they engage in as: avoiding tasks, shutting down, sleeping, and isolating all day. Attentive during discussion on Common ?Up? activities Pt identified theirs to include: being social, watching sports, and walking. Appeared to benefit from increased awareness of current behaviors and impact these have on mental health. Will continue IOP to prevent decompensation, improve daily functioning, and increase self-confidence. ?? Narrative Note: []
--- NOTE | 2024-03-29 11:10 | BH.SGPN.GN ---
Behaviors/Verbalizations/Mental Status: [] Eye contact is good. Motor activity is appropriate. Appearance is casual. Speech is Appropriate. Mood is anxious. Affect is congruent. Thoughts are linear and logical. No evidence of psychosis Client Response/Progress/Benefit: [] Pt responded well to session, attentive and engaged in group activities. Attentive during group discussions. Attentive as group discussed values and the benefits that knowing one's values can have on one's mental health. Pt explored own values and identified personal top values. Pt stated personally important values are family and mental health. ?Pt set a goal to make more plans with his family and support. Benefited from increased awareness of their personal values and how incorporating their values into behavioral activation goals can positive impact mental health. Will continue in IOP to prevent decompensation/re-admission to psych unit, increase healthy coping, and improve functioning to return to work. Narrative Note: []
--- NOTE | 2024-03-29 14:52 | BH.MDN ---
Multi-Disciplinary Note Note 60-min Individual: Time Started:: 12:05 Date: 03/29/24 Purpose of session/treatment goals addressed:: To review recent barriers and challenge distortions reinforcing pt's lack of motivation and depression. Another goal was to discuss dialectical thinking strategies and rehearse skills. Eye Contact:: Fair Motor Activity:: Appropriate Appearance:: Casual Speech:: Tangential and Other (repetitive) Mood:: Anxious and Depressed Affect:: Constricted (tearful at times) Thoughts:: Racing, Circular and No evidence of hallucinations/delusions noted Staff Interventions:: thought challenging (challenged all or nothing thinking), motivational interviewing, mindfulness skills (used grounding skills to reduce anxiety and crying ), strengths perspective, goal setting and taught coping skills (dialectical thinking skills) Client Response:: Pt responded well to session, however, pt was tearful pretty quickly as he felt guilty for not accomplishing his goals yesterday. Pt has been more verbal about his all or nothing thinking patterns which have been impacting pt's ability to give himself credit for things, engage socially, and follow through with goals. Pt shared that yesterday he woke up much later than expected which led to pt feeling disappointed in himself and because his timeline was off, pt ended up not accomplishing his goals. Pt stated he has been beating himself up over it and pt began negatively ruminating in session. Pt responded well to self compassion and thought challenging skills for all or nothing thinking. Pt made sticky notes in session so he can read them over the weekend and be reminded to think dialectically. Pt recognizes that his all or nothing thinking continues to be a major barrier in pt's recovery as pt fixates on his short-coming and then using absolute thinking. Pt did bounce back in session and could give himself some credit for coping skills. Pt also reported struggling with anxious thoughts and all or nothing thinking regarding a current texting exchange that is occurring between pt and a girl he connected with. Pt shared they have been talking for two days pt is starting to get my hopes up too high and then I tell myself if she rejects me then my heart is going to be broken. Pt also admits that he personalizes things within these texts including assuming this person is not interested based on their use of wording, emojis, and response time. Pt has a lot of negative core beliefs and pt believe he is truly not good enough for a romantic relationship. Pt began to cry/panic but he responded well to the grounding technique and calmed down. Pt was then receptive to more dialectical thinking strategies to help pt combat these all or nothing thoughts. Risks/Concerns:: Pt denies any suicidal ideations, plan, or intent as of 03/29/24. Progress Toward Goals/Plan:: Pt is demonstrating consistent progress with his consistent attendance, increased engagement during group sessions, and his report of less engagement in certain compulsions. However, pt's overall progress has been variable depending on the day/week. Pt more recently have been bringing up his low self-esteem which appears to be his biggest barrier currently. Pt continues to be receptive to feedback and goals. Pt is also continuing to work on his exposure goals which has helped improve pt's functioning in regards to driving to IOP and interacting with peers. Pt will continue IOP tx to prevent decompensation as pt reduces his attendance, improve daily functioning, and increase self-confidence. Time Stopped:: 13:15
--- NOTE | 2024-04-02 09:00 | BH.SGPN.GN ---
Behaviors/Verbalizations/Mental Status: [] Eye contact is poor. Motor activity is appropriate. Appearance is casual. Speech is Appropriate. Mood is depressed.. Affect is flat. Thoughts are linear and logical. No evidence of psychosis. Reviewed daily check in sheet and no reports of suicidal ideations or intent. Client Response/Progress/Benefit: [] Pt participated when prompted. Attentive. Daily symptom tracker notes 4/5 for depression and 2/5 for anxiety. Not a good weekend. I do not do anything productive. Shared that he is ruminating over a personal issue. It was a horrible weekend. He will not elaborate on the events that are causing ruminations, distress, and increase intrusive thoughts. Has not engaged in any type of healthy coping skills. This event along with a physical pain has led to decompensation things are falling apart. Peers attempted to provide support and encouragement. No progress noted. Will continue in IOP to prevent decompensation, decrease intrusive thoughts, and improve functioning. Narrative Note: []
--- NOTE | 2024-04-02 10:10 | BH.SGPN.GN ---
Behaviors/Verbalizations/Mental Status: []Client alert and oriented, casually dressed and groomed. Eye contact poor-disconnected today. Motor activity appropriate. Speech within normal limits. Affect constricted, mood anxious and depressed. Thoughts linear, logical, no signs of hallucinations or delusions. Client Response/Progress/Benefit: [] Pt engaged in session AEB listening attentively to others and providing input throughout. Pt engaged in activity, able to connect how it can be uncomfortable and difficult to accept when things are out of one?s own control. Pt worked with group to identify what things in life can be hard to accept. Group identified things hard to accept as: change, loss, mental health diagnosis, other?s behaviors, and failure. Pt identified struggling to accept that ?I have constant rejection.? Seemed to benefit from increased awareness of the importance of acceptance. Pt to continue in IOP tx to reduce avoidance, increase self-confidence, and improve daily functioning. ??? Narrative Note: []
--- NOTE | 2024-04-02 11:10 | BH.SGPN.GN ---
Behaviors/Verbalizations/Mental Status: []Pt alert and oriented, casually dressed and groomed. Eye contact good. Motor activity appropriate. Speech within normal limits. Affect congruent, mood euthymic, anxious. Thoughts linear, logical, no signs of hallucinations or delusions. Client Response/Progress/Benefit: [] Pt responded well to session AEB taking notes and contributing to discussion throughout. Pt engaged as group continued discussion on acceptance and the mental health benefits of practicing acceptance. Pt and peers identified what makes acceptance challenging and pt completed a self-reflection exercise on what is hard to accept in pt's life. Pt identified what is hard to accept in their life that they would like to work on is that we all experience rejection in life. Group identified strategies to increase acceptance and pt wants to practice being of a more willing mindset rather than willful to increase acceptance. Pt appeared to benefit from gaining insight and learning strategies to increase acceptance. Pt will continue IOP tx to prevent decompensation, promote skill application, improve confidence and mood stability. Narrative Note: []
--- NOTE | 2024-04-02 13:17 | BH.MDN_ITS ---
Multi-Disciplinary Note Note 60-min Individual: Time Started:: 11:50 Date: 04/02/24 Purpose of session/treatment goals addressed:: To challenge distortions keeping pt from accomplishing goals and to work on goal #2 of pt's tx plan. Eye Contact:: Fair Motor Activity:: Restless Appearance:: Casual Speech:: Tangential and Other (repetitive) Mood:: Irritable and Depressed Affect:: Flat (tearful) Thoughts:: Circular, Other (ruminating negatively; distortions) and No evidence of hallucinations/delusions noted Staff Interventions:: thought challenging, motivational interviewing, CBT techniques, strengths perspective, goal setting and other (dialectical thinking ) Client Response:: Pt responded well to session, open to walking at the beginning of session as this has been one of pt's goals. Pt did well with the walk and shared it helped a little but pt admits that he is in an irritable mood today. Pt shared that he had a terrible, miserable weekend which pt stated was triggered by something in my personal life. Pt reported that his mood decompensation had to do with the girl he was talking to telling pt that she could not hang out with him. Pt began having very self-deprecating/all or nothing thoughts and this led to pt isolating and avoiding things the rest of the weekend. Pt stated he did not accomplish any of his goals which included taking his dog for a walk each day and cleaning his room. Pt shared yesterday he also slept most of the day, so when he woke up he had a lot of negative self- talk and told himself the day is ruined I can't clean now. Pt has been in cycles like this previously, but pt admits that he is being more resistant to challenging his perspective today. Pt shared I just feel like I have nothing to fall back on, I have no job, no friends, so why try. Pt was not receptive to challenging his perspective at first and admitted that it's almost like I want to stay stuck and I don't know why. Pt appeared to benefit from processing his emotions, but he became more receptive when therapist began using motivational interviewing techniques. Pt recognized that he is letting one situation dictate the entirety of his day/week. Pt also noted that he will have more social opportunities, but pt has to continue to put forth effort and work towards individual goals to maintain connections with others. Pt also receptive to challenging his all or nothing thoughts and he reminded himself that he does not need to plan his entire day, he just needs to start. Pt plans to walk his dog today and he will meet with therapist later this week. Risks/Concerns:: Pt denies any active SI, plan, or intent as of 04/02/24. Pt denies thoughts of . Progress Toward Goals/Plan:: No significant changes since 03/29/24. Pt is demonstrating progress with his consistent attendance, increased engagement during group sessions, and his report of less engagement in certain compulsions. However, pt's overall progress has been variable depending on the day/week. Pt more recently has been reporting not following through with his goals due to negative thinking patterns and emotional dysregulation. Pt admits that today he is letting myself self-loath but pt was receptive to motivational interviewing techniques and he was more hopeful by the end of session. Pt will continue IOP tx to prevent decompensation as pt reduces his attendance, improve daily functioning, and increase self-confidence. Time Stopped:: 12:50
== END 2024-04-02 23:59 ==
LOC: BHIOP 08:00
PROVIDERS: Referring Provider Psychiatry & Neurology Psychiatry; Visit Provider Psychiatry & Neurology Psychiatry
DX: F42.9 Obsessive-compulsive disorder, unspecified (principal); F33.2 Major depressive disorder, recurrent severe without psychotic features; F41.1 Generalized anxiety disorder; Z79.899 Other long term (current) drug therapy
CPT/HCPCS: S9480; 90834; 90837; 90853

== ENCOUNTER 2024-04-03 08:02 | Outpatient (RCR) | payer MEDICARE, MEDICAID, SELFPAY ==
--- NOTE | 2024-04-03 09:00 | BH.SGPN.GN ---
Behaviors/Verbalizations/Mental Status: [] Eye contact is good. Motor activity is appropriate. Appearance is casual. Speech is Appropriate. Mood is anxious. Affect is congruent.. Thoughts are linear and logical. No evidence of psychosis. Reviewed daily check in sheet and no reports of suicidal ideations or intent. Client Response/Progress/Benefit: [] Pt participated when prompted. ? It?s been a rough few days?. He addressed his decompensation over the weekend stating that he allowed ?one thing? to dictate how he felt, what he did, and his thoughts. Reports that he received some ?tough love? from his program therapist which was helpful. ? I need to stick to my plan? regarding exposure and behavior activation goals. Feeing more optimistic today. Progress noted. Benefited from group support, encouragement, and feedback. Will continue in IOP to prevent decompensation, decrease intrusive thoughts, and improve functioning. Narrative Note: []
--- NOTE | 2024-04-03 10:15 | BH.SGPN.GN ---
Behaviors/Verbalizations/Mental Status: []Eye contact is good. Motor activity is appropriate. Appearance is casual. Speech is Appropriate. Mood is euthymic. Affect is congruent. Thoughts are linear and logical. No evidence of psychosis. Client Response/Progress/Benefit: [] Pt was engaged and an active participant throughout, providing input and taking notes. Participated throughout interactive discussion on defining anxiety and identifying cognitive and physiological symptoms of anxiety. Group discussed the role of anxiety on isolation, avoidance, and who this emotion impacts their ability to start and complete activities/goals. Pt identified their physical/physiological signs of anxiety (i.e. brain fog, tight chest, stomach issues, and fast breathing). Pt identified safety behaviors (i,e reassurance seeking, sleeping, and re-reading.) Benefited from increased awareness and insight on anxiety and its impact. Will continue in IOP to improve daily functioning, reduce negative self-talk, and improve self-confidence. Narrative Note: []
--- NOTE | 2024-04-03 11:15 | BH.SGPN.GN ---
Behaviors/Verbalizations/Mental Status: []Pt alert and oriented, casually dressed and groomed. Eye contact good. Motor activity appropriate. Speech within normal limits. Affect congruent, mood euthymic. Thoughts linear, logical, no signs of hallucinations or delusions. Client Response/Progress/Benefit: [] Pt was an active participant AEB pt providing input and listening attentively to peers. Attentive during psychoeducation on mindfulness coping skills and their impact on reducing anxiety and improving overall mental health wellness. Group was able to identify self-soothing and mind-based coping skills which included: 5-senses, meditation, deep breathing, TIPP, thought challenging, and progressive muscle relaxation. Pt also participated with peers in practicing mindfulness skills in session including deep breathing. Pt would like to work on using delay, distract, decide to manage anxiety. Appeared to benefit from increasing repertoire of anxiety reduction skills. Pt will continue in IOP tx to promote mood stability, reduce avoidance, and improve distress tolerance skills. Narrative Note: []
--- NOTE | 2024-04-06 09:00 | BH.SGPN.GN ---
Behaviors/Verbalizations/Mental Status: [] Eye contact is good. Motor activity is appropriate. Appearance is casual. Speech is Appropriate. Mood is anxious. Affect is congruent. Thoughts are linear and logical. No evidence of psychosis. Reviewed daily check in sheet and no reports of suicidal ideations or intent. Client Response/Progress/Benefit: [] Pt participated at times during the group discussion. Attentive. Daily symptom tracker notes 4/5 for anxiety, 2/5 for depression. According to pt he is feeling detached due to intrusive thoughts and constant rumination. He continues to work on exposure goals with plan to go golfing next week. Elaborated on how this will be beneficial for his mental health. He has continued to struggle with isolation and avoidance throughout the week and weekend. Limited distraction, engagements, or tasks increase his intrusive thoughts. Limited progress noted. Benefited from group support, encouragement and feedback. Will continue in IOP to prevent decompensation, decrease intrusive thoughts, and improve functioning. Narrative Note: []
--- NOTE | 2024-04-06 10:10 | BH.SGPN.GN ---
Behaviors/Verbalizations/Mental Status: []Pt alert and oriented, casually dressed and groomed. Eye contact good. Motor activity appropriate. Speech within normal limits. Affect congruent, mood depressed and anxious. Thoughts linear, logical, no signs of hallucinations or delusions. Client Response/Progress/Benefit: [] Pt took notes and contributed to group discussions. Attentive during psychoeducation on growth mindset. Participated during the activity. Interactive group discussion on growth mindset in which group verbalized their current fixed mindsets and how they affect their mental health. Pt shared common fixed mindset thoughts they have which included I'm never getting better; I don't deserve love and affection; Everyone is better than me?. These thoughts lead to feeling and staying stuck, not doing things that improve his confidence, and self-criticism. Pt stated they have personally struggled with fixed thoughts causing them to stop trying. Pt benefited from increased awareness of growth mindset and fixed thoughts and how fixed thoughts impact their mental health. Will continue IOP tx to prevent decompensation, improve daily functioning, and promote mood stability. Narrative Note: []
--- NOTE | 2024-04-06 11:15 | BH.SGPN.GN ---
Behaviors/Verbalizations/Mental Status: []Pt alert and oriented, casually dressed and groomed. Eye contact good. Motor activity appropriate. Speech within normal limits. Affect congruent, mood anxious. Thoughts linear, logical, no signs of hallucinations or delusions. Client Response/Progress/Benefit: [] Pt was an active participant during activity and discussion. Pt did well to remain attentive and participate as group worked on identifying characteristics and benefits of adopting a growth mindset. Worked with fellow participants in reframing the example fixed thoughts into growth mindset thoughts. Pt worked on changing own fixed thought and reframed the thought to ?I everyone deserves love, especially people that put good into the world.? Pt also wants to work on identifying things he is doing well. appeared to benefit from challenging own thoughts and engaging in the activity. Pt will continue IOP tx to reduce avoidance, improve distress tolerance, and increase self-confidence. Narrative Note: []
--- NOTE | 2024-04-06 14:54 | BH.MDN ---
Multi-Disciplinary Note Note 45-min Individual: Time Started:: 12:10 Date: 04/06/24 Purpose of session/treatment goals addressed:: To work on pt's fear ladder goals and to review distress tolerance skills. 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 Pt reports he is doing better than he was earlier this week and he admitted that the motivational interviewing used last session did kick me into gear. Pt shared since last session he did clean his room and he did go for a walk. Pt stated that both things improved his mood and made pt feel more accomplished. 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 Pt stated he has been doing his fear ladder and he consistently is able to do the first two goals with lower anxiety. Pt wants to move up the ladder, but pt admits that he will have a hard time reducing his compulsions when he is driving. Pt shared he currently checks his mirrors about 1-2 times a minute pt also engages in what he calls just right compulsions where pt does repetitive movements and sounds to provide relief for his intrusive thoughts. Pt receptive to changing his ERP goals to pt driving with his mom for 10-15 minutes a day and during that drive pt will not ask for reassurance. Pt will also work on getting out of the car as soon as he gets home instead of sitting and engaging in his just right compulsions. Pt reports this goal makes pt anxious, but he thinks it will be helpful. Pt will attend [facility] on Tuesday and he plans to have his mother come in that day as well. Risks/Concerns:: Pt denies any active SI or thoughts of . Pt does report his OCD has been worse lately. Progress Toward Goals/Plan:: Pt is demonstrating progress with his consistent attendance, increased engagement during group sessions, and his report of less engagement in certain compulsions. Pt also reports he cleaned his room recently which has been one of pt's goals and pt went for a walk. Pt's engagement in compulsions continues to impact his daily functioning and pt is gaining awareness that this reinforces this intrusive thoughts. Pt receptive to having a family session on 04/09/24. Pt will continue IOP tx to prevent decompensation as pt works on his fear ladder goals, improve daily functioning, and increase self-confidence. Time Stopped:: 13:00
--- NOTE | 2024-04-09 09:00 | BH.SGPN.GN ---
Behaviors/Verbalizations/Mental Status: []Pt alert and oriented, neatly dressed and groomed. Eye contact good. Motor activity appropriate. Speech within normal limits. Affect congruent, mood euthymic and anxious. Thoughts linear, logical, no signs of hallucinations or delusions. Reviewed pt?s symptom tracker, no risk for suicidal ideation, plan, or intent 04/09/24. Client Response/Progress/Benefit: []Pt was an active participant in group discussions. Attentive. Able to identify mental health wins including doing some of his exposure goals this weekend with the support of his mom and it going well. Pt also shared he did much better this weekend with dismissing his intrusive thoughts and not letting his thoughts dictate his choices for the day. Pt's stressor today is that he is having some back issues again, but pt is unable to schedule surgery due to his insurance. Pt stated despite his back pain, he is still feeling optimistic. Pt receptive to feedback from peers which pt reported was helpful. Progress noted. Benefited from group support, encouragement, and feedback. Will continue in IOP to promote mood stability, increase self-confidence, and improve ability to manage distress. Narrative Note: []
--- NOTE | 2024-04-09 10:15 | BH.SGPN.GN ---
Behaviors/Verbalizations/Mental Status: []Pt alert and oriented, casually dressed and groomed. Eye contact good. Motor activity appropriate. Speech within normal limits. Affect congruent, mood euthymic and anxious. Thoughts linear, logical, no signs of hallucinations or delusions. Client Response/Progress/Benefit: [] Pt was attentive during psychoeducation and participated in group activity. Group discussed what contributes to a person?s perspective and how perspective can positively or negatively impact mental health treatment. Pt reflected on their perspective today and how it is impacting them. Pt shared their perspective today is being more positive, but he is still negative more than he desires. Pt shared ?I?m hopeful that the program is helping, but I still have fears about my OCD.? Pt appeared to benefit from increasing awareness of different perspectives and how they can affect mental health. Pt will continue IOP tx to promote mood stability, increase self-confidence in his ability to manage OCD, and improve daily functioning. Narrative Note: []
--- NOTE | 2024-04-09 11:10 | BH.SGPN.GN ---
Behaviors/Verbalizations/Mental Status: []Pt alert and oriented, casually dressed and groomed. Eye contact fair. Motor activity appropriate. Speech within normal limits. Affect congruent, mood dysthymic. Thoughts linear, logical, no signs of hallucinations or delusions. Client Response/Progress/Benefit: []Pt was attentive and contributed to group discussion. Pt worked with group to identify strategies that can help with challenging negative perspective. Pt stated he can remind herself that things take time as a way to challenge negative perspective. Pt completed strengths exploration worksheet, identifying her personal strengths. Pt able to acknowledge how these strengths are helping pt and can continue to help pt in mental health journey. Pt identified wanting to work on leaning on strength of resiliency and practice the skill of identifying positives. Benefited from identifying personal strengths and strategies for enhancing use of identified strengths. Pt will continue IOP tx to challenge distorted/negative thoughts, increase use of healthy coping skills, and prevent decompensation.
--- NOTE | 2024-04-09 11:12 | BH.SGPN.GN ---
Behaviors/Verbalizations/Mental Status: [] Client alert and oriented, casually dressed and groomed. Eye contact good. Motor activity appropriate. Speech within normal limits. Affect congruent, mood euthymic and depressed. Thoughts linear, logical, no signs of hallucinations or delusions. Client Response/Progress/Benefit: [] Client responded well to session, attentive. Did well to process activity and work with group to relate the strategies used to overcome barriers in the activity to managing change in own life. Client identified a change would like to make is become more assertive and confident. Client stated currently in action stage. Reported goal to work towards is put self in uncomfortable situations. Appeared to benefit from identifying a small goal to work towards. Client will continue IOP tx to prevent decompensation, increase healthy thought patterns, and improve daily functioning. Narrative Note: []
--- NOTE | 2024-04-09 15:48 | BH.MDN ---
Multi-Disciplinary Note Note Family: Time Started:: 12:15 Date: 04/09/24 Purpose of session/treatment goals addressed:: To bring in pt's support person to provide psychoeducation, address barriers, and establish goals. Eye Contact:: Fair Motor Activity:: Restless Appearance:: Casual Speech:: Appropriate and Other (repetitive) Mood:: Anxious and Depressed Affect:: Constricted (tearful) Thoughts:: Circular, Other (intrusive thoughts) and No evidence of hallucinations/delusions noted Staff Interventions:: thought challenging, motivational interviewing, psychoeducation on: (OCD; ERP), CBT techniques, strengths perspective, goal setting and other (Discussed barriers to pt's ERP goals and ability to reduce intrusive thoughts. ) Client Response:: Pt responded well to session, open to meeting with therapist. Pt brought in his mother for a support session today and pt and his mother hope to discuss pt's worsening intrusive thoughts recently. 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 Pt's mother shared she wants to get more guidance when pt is seeking reassurance. Pt's mother shared pt will send numerous text messages after he drives asking for his mother to give him reassurance that he did not hit anyone. Discussed the verbiage pt's mother can use to set boundaries and to provide support without giving pt false comfort. Pt stated the intensity of his intrusive thoughts have worsened again recently and he feels unsure why. After exploring further, pt admitted that part of me just doesn't believe that these are just thoughts so I don't accept that. Pt shared he is fearful that his intrusive thoughts are not thoughts, but memories that I'm trying to figure out. Pt does not have any evidence to support these are memories and pt's mother confirmed this. Pt also reports he has not reduced his engaged in compulsions at home and he will be frozen just making the same movements. Pt's mother stated she tries to get pt to use opposite action, but pt feels like he cannot stop his compulsions until it feels just right. Pt and mother receptive to psychoeducation on ERP and gained insight that it is not as effective if pt is only using thought dismissal techniques instead of using both dismissal and response prevention. Pt and mother were receptive to setting goals and pt will continue to work on his ERP goal of driving with his mom for 20 a night. During that time pt's mother will not be giving pt reassurance and pt will leave the car as soon as he gets home instead of engaging in his compulsions in the car. Pt will also continue to work on his goals of engaging in more hobbies and getting out of the house on days pt does not have IOP. Risks/Concerns:: Pt denies any active SI, plan, or intent as of 04/09/24. Progress Toward Goals/Plan:: Pt is demonstrating progress with his consistent attendance, increased engagement during group sessions, and his report of less engagement in certain compulsions. Pt has accomplished some of her recent goals including going for a walk and cleaning his room. However, pt reported that he has not been reducing as many compulsions as he had previously stated, so his intrusive thoughts have been more intense and debilitating. Pt and mom receptive to new goals and boundaries discussed in session. Pt will continue IOP tx to prevent decompensation as pt works on his fear ladder goals, improve daily functioning, and increase self-confidence. Time Stopped:: 13:05
--- NOTE | 2024-04-11 09:00 | BH.SGPN.GN ---
Behaviors/Verbalizations/Mental Status: [] Pt alert and oriented, casually dressed and groomed. Eye contact good. Motor activity appropriate. Speech within normal limits. Affect congruent, mood depressed but hopeful. Thoughts linear, logical, no signs of hallucinations or delusions. Reviewed pt?s symptom tracker, no risk for suicidal ideation, plan, or intent 04/11/24 Client Response/Progress/Benefit: []Pt was an active participant in group discussions. Attentive. Able to identify mental health wins including taking steps not to fixate on his day yesterday and instead focus on trying to do what he can to help himself today. Shared he had overslept the previous day and would usually ruminate negatively on this. Additional win noted as continuing to make progress with his driving exposure therapy and is up to 15-20 minutes of daily driving. Shared that his intrusive thoughts and compulsions continue to be a major source of stress as they significantly impede his functioning. Benefited from group support, encouragement, and feedback. Will continue in IOP to prevent decompensation, promote mood stability, and increase application on coping skills. Narrative Note: []
--- NOTE | 2024-04-11 10:10 | BH.SGPN.GN ---
Behaviors/Verbalizations/Mental Status: [] Eye contact is good. Motor activity is appropriate. Appearance is casual. Speech is Appropriate. Mood is anxious. Affect is congruent. Thoughts are linear and logical. No evidence of psychosis. Client Response/Progress/Benefit: [] Pt was an active participant during interactive group discussions.Along with peers contributed to interactive discussion on defining what a boundary is in mental health. Pt along with peers identified challenges to setting boundaries which included; people pleasing, fear of rejection, fear of loss, fear people won't respect the boundary, etc. Pt along with peers identified the benefits to setting boundaries such as reduces assumptions, can reduce stress, improve communication/relationships, and can keep us safe. Attentive during psychoeducation on types of boundaries (rigid, porous, flexible). Pt benefited from increased awareness and insight on the importance/benefit to setting health boundaries. Will continue in IOP to prevent decompensation, decrease intrusive/obsessive thoughts, and improve functioning. Narrative Note: []
--- NOTE | 2024-04-11 11:05 | BH.SGPN.GN ---
Behaviors/Verbalizations/Mental Status: []Eye contact is good. Motor activity is appropriate. Appearance is casual. Speech is Appropriate. Mood is calm. Affect is congruent. Thoughts are linear and logical. No evidence of psychosis. Client Response/Progress/Benefit: []Pt responded well to session AEB listening attentively to peers and taking notes throughout. Reports connecting most with porous boundaries with material things and more rigid with emotions. Participated in group discussion brainstorming various strategies for improving healthy boundary setting. Pt reports wanting to work on being less vague with his responses and not over-explaining. Seemed to benefit from increased awareness of how different boundary styles can impact mental health. Will continue IOP tx to promote mood stability, increase distress tolerance skills, and reduce avoidance. Narrative Note: []
--- NOTE | 2024-04-11 12:02 | PCM.BH.PN_ITS ---
Progress Note Progress Note: History of Present Illness/Interim History: The patient is a 28-year-old single, male with a history of OCD and depression who is seen in follow-up at the [facility]. I last saw the patient 3 weeks ago. The patient states that he has been using the skills he has learned in therapy at the [facility] to decrease the intensity of his intrusive thoughts but some remain in some tendency toward his compulsive behavior or rituals remains. He has had a little bit worsening at times of some of the to boost thoughts that he has. He has been able to drive from [place] to the [facility] and has not had to turn around but does have to use skills to lin the intrusive thoughts he has that he is possibly running someone over or other. His mood he states is less depressed overall. He has not used any alcohol since July or August and is continuing to try to decrease his marijuana use. Sleep remains good. He denies passive thoughts of , suicidal ideation, plan for suicide, homicidal ideation, hallucinations or delusions. Panic attacks remain much improved and are less than once a week now. He is tolerating medications well with no side effects. Current Psychiatric Medications: [] Luvox 150 mg p.o. daily (x 1 month at this dose); Latuda 80 mg p.o. daily with food; Lamictal 150 mg p.o. daily; trazodone 50 mg p.o. nightly as needed for sleep; levothyroxine 25 mcg p.o. daily. Mental Status Examination: [] The patient is a 28-year-old male who appears normal for stated age and has a transverse scar on his neck. He is ambulatory with a normal gait and is casually dressed and groomed with good hygiene. He is cooperative during the interview and has no psychomotor agitation or retardation. Eye contact is good and speech is normal rate and rhythm and fluent with no pressure. Mood is depressed and anxious. Affect is mildly constricted. Thought process is goal-directed and organized. 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 There is no evidence of passive thoughts of , plan for suicide, homicidal ideation, hallucinations or delusions. Reality testing is intact. Judgment is intact. Insight is good. Impulsivity is moderate. Diagnoses: [] 1. Obsessive-compulsive disorder 2. Major depressive disorder, recurrent, severe without psychosis (improving) 3. Generalized anxiety disorder 4. Chronic back pain 5. Ankylosing spondylitis 6. History of thyroid cancer currently in remission 7. THC use disorder 8. Primary support and work issues Plan: [] The patient will continue the IOP in behavioral health at [facility] as the structure, support, education and group therapy is benefiting him and preventing his symptoms from worsening. The risk, options, possible complications and side effects of the medications were again discussed with the patient and he understands and accepts these. The patient understands that OCD requires higher doses and can sometimes take up to 12 weeks to see an improvement in symptoms. He agrees to increase his Luvox to 200 mg p.o. nightly and a prescription is sent in for this. He will take two 100 mg tablets daily. He will continue to follow-up with his outpatient providers and I will see the patient in follow-up in several weeks.
--- NOTE | 2024-04-13 10:10 | BH.SGPN.GN ---
Behaviors/Verbalizations/Mental Status: [] Pt alert and oriented, casually dressed and groomed. Eye contact good. Motor activity appropriate. Speech within normal limits. Affect congruent, mood anxious and depressed. Thoughts linear, logical, no signs of hallucinations or delusions. Client Response/Progress/Benefit: [] Pt participated during small group discussions. Attentive during psychoeducation about defense mechanisms. Showed engagement during small group discussions and helped group identify which defense mechanisms were maladaptive, adaptive, or ?somewhere in the [place].? Noted he struggles with projection, intellectualization, and anticipation defense mechanisms. Pt worked with small group on identifying how each defense mechanism can impact mental health and gave examples. ?Seemed to benefit from gaining awareness about the different defense mechanisms. Pt to continue IOP tx to prevent decompensation, stabilize mood, increase healthy coping, and improve functioning. Narrative Note: []
--- NOTE | 2024-04-13 11:10 | BH.SGPN.GN ---
Behaviors/Verbalizations/Mental Status: []Pt alert and oriented, casually dressed and groomed. Eye contact good. Motor activity appropriate. Speech within normal limits. Affect congruent, mood anxious. Thoughts linear, logical, no signs of hallucinations or delusions. Client Response/Progress/Benefit: []Pt responded well to session, participating in activity and small group discussion. Group reviewed the rest of the defense mechanisms and discussed how these are adaptive, maladaptive, or somewhere in the [place]. Pt participated in the experiential activity which encouraged pts to draw a castle that portrayed their different defense mechanisms. Pt's defense mechanisms included projection, rationalization, and anticipation. Pt shared wanting to work on reducing his projection. Pt listened to perl developer teach different skills to help pt?s cope with or change their defense mechanisms. Pt appeared to benefit from gaining insight to the different defense mechanisms and learning coping skills. Pt will continue IOP tx to prevent decompensation, improve daily functioning, and increase distress tolerance skills. Narrative Note: []
--- NOTE | 2024-04-13 14:32 | BH.MDN_ITS ---
Multi-Disciplinary Note Note 30-min Individual: Time Started:: 09:20 Date: 04/13/24 Purpose of session/treatment goals addressed:: To complete one of pt's exposure goals and to discuss plan for the weekend. Eye Contact:: Good Motor Activity:: Appropriate Appearance:: Casual Speech:: Appropriate Mood:: Euthymic and Anxious Affect:: Congruent Thoughts:: Racing [employer] Interventions:: CBT techniques, mindfulness skills and strengths perspective Client Response:: Pt responded well to session, open to meeting with therapist. Pt reports feeling both anxious and excited about his exposure goal today. 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 This is one of pt's exposure goals because pt's OCD causes pt to believe that he says and does things that go against pt's character, like saying something vulgar when he talks or texts. This has been the main reason pt has been unable to return to his job and pt wants to begin overcoming this. Pt did well in session with johan naging his anxiety, pt used distraction and positive self-talk. Pt wrote up the message for therapist to read and pt was challenged to only read it through a few times before it was sent. Pt stated he could notice his OCD thoughts ramping up and pt shared they are telling me I said something really mean. Pt able to dismiss these thoughts and reminded that not engaging in the compulsions (re-reading many times) would actually help reduce pt's intrusive thoughts over time. Pt encouraged to stay busy this weekend and to continue working his ERP goals with driving. Risks/Concerns:: Pt denies any suicidal ideations, plan, or intent. Pt denies any thoughts of . Progress Toward Goals/Plan:: No significant changes since last session on 04/09/24. Pt's mood is improved since that session and pt is hopeful about his recent medication increase. Pt needs outpatient therapy and we are currently working on finding a provider that specializes in OCD to continue working on pt's tx goals. Pt will continue IOP tx to promote mood stability, increase distress tolerance skills, and improve daily functioning. Time Stopped:: 09:49
--- NOTE | 2024-04-16 09:00 | BH.SGPN.GN ---
Behaviors/Verbalizations/Mental Status: [] Eye contact is poor. Motor activity is appropriate. Appearance is casual. Speech is Appropriate. Mood is depressed/irritable. Affect is flat. Thoughts are linear and logical. No evidence of psychosis. Reviewed daily check in sheet and no reports of suicidal ideations or intent. Client Response/Progress/Benefit: [] Pt participated when prompted. Could not identify any mental health positives over the weekend. There has been a pattern in which pt struggles significantly over the weekend due to isolation, avoidance, and lack of motivation. Limited accountability to himself to follow through with exposure goals and attempt coping/reframing techniques.??Daily symptom tracker notes 3/5 for depression and agitation. Regression noted over the weekend which has been a consistent identified in IOP. Benefited from group support, encouragement, and feedback. Will continue in IOP to decrease intrusive thoughts, stabilize mood, and improve functioning. Narrative Note: []
--- NOTE | 2024-04-16 10:10 | BH.SGPN.GN ---
Behaviors/Verbalizations/Mental Status: [] Client alert and oriented, casually dressed and groomed. Eye contact good. Motor activity appropriate. Speech within normal limits. Affect congruent, mood depressed. Thoughts linear, logical, no signs of hallucinations or delusions. Client Response/Progress/Benefit: [] Client attentive in session AEB taking notes and keeping eye contact. Group identified the benefits of change which included: better mental health, increased confidence, and improved relationships. Worked with the group to identify barriers to change, which included: uncomfortable emotions such as anxiety, lack of motivation,fear of failure, disappointing others, and loss of momentum.Client participated along with group in activity where they identified and discussed the emotions related to change. Benefited from increased awareness and understanding of emotions, benefits, and barriers related to change. Will continue IOP tx to continue to combat distortions that reinforce obsessive thought patterns. Narrative Note: []
--- NOTE | 2024-04-16 12:10 | BH.MDN_ITS ---
Multi-Disciplinary Note Note 30-min Individual: Time Started:: 12:10 Date: 04/16/24 Purpose of session/treatment goals addressed:: Met with patient to process current symptoms. Pt declined to share this AM in process group and has been more disengaged from IOP today. Eye Contact:: Fair Appearance:: Disheveled Speech:: Appropriate Mood:: Depressed Affect:: Congruent Thoughts:: Linear, Logical and No evidence of hallucinations/delusions noted Staff Interventions:: CBT techniques and goal setting Client Response:: Pt reports feeling depressed and irritable today. I feel the urge to just sulk. He also reports urges to retreat to his comfort zone, which is his room, and sleep to escape. My goal is to not take a nap today. He talked about feeling compelled to lean into his depression as it feels unnatural to try actions, thoughts, and interventions that are meant to distract or cause giovanna. He gives example of group activity today in which he didn't want to participate b/c others were smiling and having fun. He did participate and cracked a couple smiles which was beneficial. Negative thoughts and ruminations regarding mental health struggles and OCD. He is getting closer to discharge from IOP and is concerned about decompensating. Thoughts that he should be better. Insight regarding progress, however struggles to challenge and reframe negative thoughts. Risks/Concerns:: Pt denies active suicidal ideations, plan, or intent. Daily symptom tracker also notes no suicidal thoughts or self-harm urges. He reports survival ambivalence wouldn't mind if I which had been long- standing in relation to his struggles with OCD and intrusive thoughts. Does not present as imminent danger to himself. Protective factors reported. Future- oriented. Progress Toward Goals/Plan:: We developed strategies for this afternoon to distract, engage socially, and practice skills. Therapist worked with patient to identify negative thoughts and challenge/reframe. Identified affirmations to utilize. Reframed struggles and perceived failures as opportunities to identify skills and learn from challenge. Will continue in IOP. Time Stopped:: 12:40
--- NOTE | 2024-04-17 09:00 | BH.SGPN.GN ---
Behaviors/Verbalizations/Mental Status: [] Pt alert and oriented, neatly dressed and groomed. Eye contact good. Motor activity appropriate. Speech within normal limits. Affect congruent, mood depressed and stressed. Thoughts linear, logical, no signs of hallucinations or delusions. Reviewed pt?s symptom tracker, no risk for suicidal ideation, plan, or intent 04/17/24 Client Response/Progress/Benefit: []Pt was an active participant in group discussions. Attentive. Able to identify mental health wins including bouncing back from a really rough weekend and recognizing that he was leaning into my depression. Pt also reported using opposite action which helped pt reduce his engagement in compulsions. Pt's stressor today is that his insurance company is preventing pt from getting surgery on his back and he has been in severe pain. Pt stated he is feeling resilient and discouraged this morning. Pt receptive to feedback from peers which pt reported was helpful. Progress noted. Benefited from group support, encouragement, and feedback. Will continue in IOP to prevent decompensation, improve daily functioning, and reduce negative self-talk. Narrative Note: []
--- NOTE | 2024-04-17 10:15 | BH.SGPN.GN ---
Behaviors/Verbalizations/Mental Status: []Pt alert and oriented, casually dressed and groomed. Eye contact good. Motor activity appropriate. Speech within normal limits. Affect congruent, mood content, anxious. Thoughts linear, logical, no signs of hallucinations or delusions. ? Client Response/Progress/Benefit: []Pt responded well to session, attentive and engaged. Pt participated in activity where pts had to guess the celebrity with a known mental health diagnosis and this led to discussion on self-stigma. Group participated in the discussion defining stigma as well as what stigma has kept pt's from doing in their lives. Pt stated mental health stigma has led pt to believe he can't be helped and isolate or avoid others. Pt admits that he assumes others will rent collector him or treat him poorly. Pt worked with peers to begin discussion of what reinforces stigma and this was discussed further in the next group. Pt appeared to benefit from learning about the different types of stigma as well as gaining awareness of how stigma has personally impacted pt. Pt will continue IOP tx to promote mood stability, increase use of healthy exposure coping skills, and prevent decompensation. Narrative Note: []
--- NOTE | 2024-04-17 11:15 | BH.SGPN.GN ---
Behaviors/Verbalizations/Mental Status: []Pt alert and oriented, casually dressed and groomed. Eye contact fair. Motor activity appropriate. Speech within normal limits. Affect congruent, mood anxious. Thoughts linear, logical, no signs of hallucinations or delusions. Client Response/Progress/Benefit: [] Pt engaged participant AEB participating in the activity, providing input during small group discussion, and listening attentively to others. Pt appeared to connect with discussion in the benefits of addressing mental health stigma which included: improved relationships, increased willingness to seek help, increased happiness, and improved confidence. Group brainstormed strategies to combat social and perceived stigma. Pt shared what he can do to combat stigma is to talk nicer to self and stop apologizing for having struggles. Appeared to benefit from increasing awareness of strategies to combat stigma. Will continue IOP tx to increase consistent use of healthy coping skills, challenge negative thoughts, and prevent decompensation.
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
--- NOTE | 2024-04-20 10:15 | BH.SGPN.GN ---
Behaviors/Verbalizations/Mental Status: [] Eye contact is good. Motor activity is appropriate. Appearance is casual. Speech is Appropriate. Mood is depressed. Affect is congruent. Thoughts are linear and logical. No evidence of psychosis. Client Response/Progress/Benefit: [] Pt engaged participant AEB listening to others, engaging in activity, and providing feedback at times. Attentive during psychoeducation and provided insight into obstacles that impede mental wellness. Pt shared with group current mental health reality and desired mental health reality, noting that he feels alone and incapable of success. Desires a sense of hope and confidence. Identified barriers to desired reality include: isolation, fear of failure, and projection. Benefited from taking look at current mental health state and obstacles for progress. Pt to continue IOP tx to decrease anxiety, improve thought challenging skill application, and prevent decompensation. Narrative Note: []
--- NOTE | 2024-04-20 11:15 | BH.SGPN.GN ---
Behaviors/Verbalizations/Mental Status: []Eye contact is good. Motor activity is appropriate. Appearance is casual. Speech is Appropriate. Mood is anxious and depressed. Affect is congruent. Thoughts are linear and logical. No evidence of psychosis. Client Response/Progress/Benefit: []Pt was an engaged participant in group discussion and activity. Worked with group to identify strategies to help overcome barriers and obstacles to desired reality. Group developed strategies for the common barriers. Identified personal barriers to desired reality and choose one obstacle to work. Pt stated pt wants to work on barrier of fear of failure by utilizing more opposite action when he wants to shut down. Pt seemed to benefit from increased repertoire of healthy coping skills/strategies to overcome common barriers to moving forward. Pt is to continue IOP to prevent decompensation, increase use of healthy coping skills, and reduce negative self-talk. Narrative Note: []
--- NOTE | 2024-04-20 15:37 | BH.MDN_ITS ---
Multi-Disciplinary Note Note 60-min Individual: Time Started:: 12:15 Date: 04/20/24 Purpose of session/treatment goals addressed:: To work on motivational interviewing techniques and to identify outpatient providers. Eye Contact:: Good and Fair Motor Activity:: Restless Appearance:: Casual Speech:: Tangential and Rapid Mood:: Anxious, Irritable and Depressed Affect:: Congruent (tearful) Thoughts:: Circular, Other (ruminations.) and No evidence of hallucinations/delusions noted Staff Interventions:: thought challenging, motivational interviewing, CBT techniques, strengths perspective, goal setting and other (discussed outpatient providers) Client Response:: Pt responded well to session, open to meeting with therapist. Pt reports he is still depressed and having more negative thinking, but he feels slightly better compared to his previous session this week. Earlier this week, pt created an imaginal exposure recording to help pt in addition to his driving exposure goals. Pt admits that he has not listed to it since last session and he admits it was due to feeling down and having zero motivation. Pt recognizes that his all or nothing thinking has been a barrier to his treatment in the past and it is currently impacting pt know. Pt shared that he has been having thoughts like well what if I get better and then years from now I find out I really did do something bad, what's the point of trying then? Pt admits that when he thinks this way and leans into his depression and anxiety then he ultimately feels worse and has even less motivation. Discussed how pt will not regret having moments of giovanna in life, but he has to allow himself to have those opportunities. Pt made the connection that his worst fear in life (to be in [place] [facility] or get killed or lose all his freedoms) is in some ways becoming reality do to pt not allowing himself to fully use his coping skills and work towards goals. Pt receptive to this and pt shared it did help him challenge his perspective today. Pt usually does well with thought challenging when assisted by external support. Pt agrees to goal setting for the weekend and wants to work on continuing with his driving goals. Pt also encouraged to listen to his recordings. Risks/Concerns:: Pt denies any active SI, plan, or intent as of 04/20/24. Pt does endorse more negative thought patterns and pt has reported less application of coping skills due to his all or nothing thinking. Progress Toward Goals/Plan:: No significant changes since previous session, pt continues to report lack of follow through with coping skills. Pt also endorses a depressed mood, but pt is slightly more hopeful today per his report. Pt is in need out an outpatient therapist and he has been given a few referrals for OCD specialists. Pt will continue IOP tx to prevent decompensation, improve daily functioning, and increase distress tolerance skills. Time Stopped:: 13:10
--- NOTE | 2024-04-23 09:05 | BH.SGPN.GN ---
Behaviors/Verbalizations/Mental Status: [] Eye contact is poor. Motor activity is appropriate. Appearance is casual. Speech is Appropriate. Mood is anxious/irritable. Affect is flat. Thoughts are linear and logical. No evidence of psychosis. Reviewed daily check in sheet and no reports of suicidal ideations or intent. Client Response/Progress/Benefit: [] Pt participated when prompted. Distracted. Looking down at the floor for a majority of the group. ? bunch of negative this ?. According to pt his OCD and intrusive thoughts are ?out of control?. Irritable and frustrated with himself and his mental health struggles. Group provided support and encouragement which was beneficial. No progress noted. Pt continues to struggle over the weekends due to isolation, limited engagement, no motivation, no structure, and refusal to utilize skills. Will continue in IOP to prevent decompensation. Narrative Note: []
--- NOTE | 2024-04-23 10:15 | BH.SGPN.GN ---
Behaviors/Verbalizations/Mental Status: []Eye contact is good. Motor activity is appropriate. Appearance is casual. Speech is Appropriate. Mood is depressed. Affect is flat. Thoughts are linear and logical. No evidence of psychosis. Client Response/Progress/Benefit: [] Pt participated, AEB taking notes and providing input in group discussion when prompted. Attentive during psychoeducation. Pt engaged during interactive discussion in which the group defined self-care and discussed its benefits. Group discussed barriers to engaging in self-care. Group members together came up with not having time, it being selfish, not feeling like they deserve it, and not having energy. Pt stated their personal barrier is feeling like he does not have hobbies or ?things in my life.? Pt participated in small groups where they worked to identified and challenged common self-care ?myths?. Benefited from increased awareness of self-care, its benefits, and the consequences of not utilizing self-care strategies. Will continue IOP tx to prevent decompensation, improve daily functioning, and increase application of healthy coping skills. ??? Narrative Note: []
--- NOTE | 2024-04-23 11:15 | BH.SGPN.GN ---
Behaviors/Verbalizations/Mental Status: []Eye contact is good. Motor activity is appropriate. Appearance is casual. Speech is Appropriate. Mood is depressed. Affect is congruent. Thoughts are linear and logical. No evidence of psychosis. Client Response/Progress/Benefit: []Pt engaged in discussion reviewing different areas of self-care and completing self-assessment of current self-care, as well as providing input throughout discussion. Did well to complete self-care self-assessment worksheet. Pt identified current self-care practices and what self-care activities Pt wants to start using. Pt selected social self-care as the area pt wants to improve and he will do this by ?getting out in public more.? Appeared to benefit from completing the self-care evaluation and gaining insights into current self-care practices, as well as identifying areas in which Pt would like to improve upon. Pt will continue IOP tx to prevent decompensation, increase application of healthy coping skills, and improve daily functioning. Narrative Note: []
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
--- NOTE | 2024-04-24 09:05 | BH.SGPN.GN ---
Behaviors/Verbalizations/Mental Status: [] ?Pt alert and oriented, casually dressed and groomed. Eye contact good. Motor activity appropriate. Speech within normal limits. Affect congruent, mood anxious and depressed. Thoughts linear, logical, no signs of hallucinations or delusions. Reviewed pt?s symptom tracker, no risk for suicidal ideation, plan, or intent 04/24/24 Client Response/Progress/Benefit: []Pt receptive of session, engaged throughout and appearing to benefit from group support and encouragement. Identified current mental health wins as doing better with perspective than yesterday, as well as actively challenging his thoughts throughout moments of increased intrusive thinking. Stressor noted as an upcoming oncology appt. To determine whether his cancer will continue to be in remission. Pt noted that he is reminding himself of his progress and focusing on what?s in his control. Benefited from group supportive feedback, encouragement, and support. Recommended continued IOP tx to prevent decompensation, improve mood stability, and promote skill application. Narrative Note: []
--- NOTE | 2024-04-24 10:15 | BH.SGPN.GN ---
Behaviors/Verbalizations/Mental Status: [] Eye contact is good. Motor activity is appropriate. Appearance is casual. Speech is Appropriate. Mood is anxious/depressed. Affect is congruent. Thoughts are linear and logical. No evidence of psychosis. Client Response/Progress/Benefit: [] Pt was an engaged participant AEB listening attentively to others, taking notes, and providing feedback in small group discussions. Attentive during psychoeducation AEB by note taking and providing some input. Pt worked along with peers in small groups to define inappropriate guilt and appropriate guilt. Interactive discussion on examples of both inappropriate and appropriate guilt. Worked well in small group with peers where they identified example of inappropriate vs appropriate guilt and the impact inappropriate guilt can have on MH. Benefited from increased awareness of guilt and the differences between appropriate and inappropriate guilt. Plan is to continue in IOP to prevent decompensation, decrease intrusive thoughts, increase healthy coping,and improve functioning. Narrative Note: []
--- NOTE | 2024-04-24 11:09 | PCM.BH.PN ---
Progress Note Progress Note: History of Present Illness/Interim History: The patient is a 28-year-old single male with a history of OCD, depression, anxiety, chronic back pain and ankylosing spondylitis who is seen in follow-up at the [facility]. I last saw the patient 2 weeks ago and at that time we increased his Luvox dose to 200 mg p.o. daily. Patient tolerated the increase Luvox dose well and is not having any side effects. He reports that his intrusive thoughts and compulsions have improved but they remain and at times are severe in intensity. He has been more able to drive to and from the IOP but has not driven much otherwise. He states that he had a few days last week that the OCD was extremely severe but it has improved and today he feels much better. He remains hopeful for the future although he still has occasional depressed mood. He is little frustrated that it takes along for his OCD symptoms to improve on the medications. He has also decrease his marijuana use going from 4-5 times a day to around 3 times a day. He is having panic attacks about once a week but they are not severe now. He is sleeping well at about 9 hours a night and feels rested. He states that 2 days ago when his OCD became unmanageable he had some passive thoughts of but when his OCD symptoms improved this has completely resolved. He denies any suicidal ideation during that time. He currently denies passive thoughts of , suicidal ideation, plan for suicide, homicidal ideation, hallucinations or delusions. Current Psychiatric Medications: [] Luvox 200 mg p.o. daily (x 2 weeks); Latuda 80 mg p.o. daily with food; Lamictal 150 mg p.o. daily; trazodone 50 mg p.o. nightly as needed for sleep; levothyroxine 25 mcg p.o. daily. Mental Status Examination: [] The patient is a 28-year-old male who appears normal for stated age and has a transverse scar on his neck anteriorly. He is ambulatory with a normal gait and is casually dressed and groomed with good hygiene. He is cooperative and pleasant during the interview and has no psychomotor agitation or retardation. Eye contact is good and speech is normal rate and rhythm and fluent with no pressure. Mood is depressed and anxious. Affect is mildly constricted. Thought process is goal-directed and organized. 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 There is no evidence of passive thoughts of , plan for suicide, homicidal ideation, hallucinations or delusions. Reality testing is intact. Judgment is intact. Insight is good. Impulsivity is moderate. Diagnoses: [] 1. Obsessive-compulsive disorder 2. Major depressive disorder, recurrent, severe without psychosis (improving) 3. Generalized anxiety disorder 4. Chronic back pain 5. Ankylosing spondylitis 6. History of thyroid cancer currently in remission 7. THC use disorder 8. Primary support and work issues Plan: [] The patient will continue the IOP and behavioral health at [facility] as the structure, support, education and group therapy is benefiting him and preventing his symptoms from worsening. He felt safe during the interview and if it anytime he does not feel safe he agrees to let us know or go to the emergency room. No medication changes were made today as they were recently changed. The patient understands that it can take up to 12 weeks to see improvement in OCD symptoms when doses are changed. He will continue to follow-up with his outpatient providers and I will see the patient in follow-up in several weeks.
--- NOTE | 2024-04-24 11:15 | BH.SGPN.GN ---
Behaviors/Verbalizations/Mental Status: []Pt alert and oriented, casually dressed and groomed. Eye contact good. Motor activity appropriate. Speech within normal limits. Affect congruent, mood anxious. Thoughts linear, logical, no signs of hallucinations or delusions. Client Response/Progress/Benefit: []Pt engaged participant AEB listening attentively to others and providing input throughout group. Pt worked within their small group to identify strategies to manage inappropriate guilt. Identified a personal example of inappropriate guilt as ?feeling bad for his therapist because he relapsed on his unhealthy skills?. Provided insight that this cues a feeling of ?fear of disappointing others?. Pt wants to work on combatting inappropriate guilt by correcting the distortions and practicing sitting with the uncomfortable. Pt seemed to benefit from learning about strategies to manage appropriate and inappropriate guilt. Pt to continue IOP level of care to continue to improve functioning, prevent decompensation, and promote mood stability. ?
--- NOTE | 2024-04-27 09:00 | BH.SGPN.GN ---
Behaviors/Tasha ?Pt alert and oriented, casually dressed and groomed. Eye contact good. Motor activity appropriate. Speech within normal limits. Affect congruent, mood dysthymic. Thoughts linear, logical, no signs of hallucinations or delusions. Reviewed pt?s symptom tracker, no risk for suicidal ideation, plan, or intent 04/27/24 Client Response/Progress/Benefit: [] Pt was an active participant in group discussions. Attentive. Able to identify mental health wins including doing well to bounce back after a difficult anxiety day earlier in the week. Expressed trying not to ruminate on his intrusive thoughts. Additional win noted as news his cancer remains in remission. Stressor remains difficulties in managing intrusive thoughts but self-reports limited follow-through with skills he has learned. Benefited from group support, encouragement, and feedback. Will continue in IOP to prevent decompensation, improve daily functioning, and increase consistent application of skills. Narrative Note: []
--- NOTE | 2024-04-27 10:13 | BH.SGPN.GN ---
Behaviors/Verbalizations/Mental Status: [] Eye contact is fair to good. Motor activity is appropriate. Appearance is casual. Speech within normal limits. Mood is eythimic. Affect is congruent. Thoughts are linear and logical. No evidence of psychosis. Client Response/Progress/Benefit: [] Client was an active participant in group discussion and experiential activity. Attentive during psychoeducation on resilience. Participated in interactive discussion with peers on the definition of resilience and where it comes from. Group identified that resiliency can be impacted by; past experiences, upbringing, and current mental health state. Group also worked together to identify the benefits of being resilient and how it is related to mental health. Able to relate experiential activity of group juggle to topics of resilience. Worked well with peers in small group in which they identified factors that contribute to resilience. Benefited from increased awareness of resilience and the factors that contribute to building resilience. Will continue in IOP to prevent decompensation and decrease ruminating thought processes. Narrative Note: []
--- NOTE | 2024-04-27 10:24 | BH.MDN ---
Multi-Disciplinary Note Note 30-min Individual: Time Started:: 08:45 Date: 04/27/24 Purpose of session/treatment goals addressed:: To review progress with exposure goals and set goals for the weekend. Eye Contact:: Good Motor Activity:: Appropriate Appearance:: Casual Speech:: Appropriate Mood:: Euthymic and Anxious Affect:: Bright Thoughts:: Linear, Logical and No evidence of hallucinations/delusions noted Staff Interventions:: motivational interviewing, CBT techniques, mindfulness skills, strengths perspective and goal setting Client Response:: Pt responded well to session, open to meeting with therapist. Pt reports feeling better today and his affect was notably brighter. Pt and therapist started off session with a walk which pt reported was beneficial. Pt stated since his last session he listened to his imaginal exposure recordings and he found it helpful. Pt's view on this has shifted since Tuesday as pt is more hopeful today and admits he is more willing to try the skills again. Pt also did some exposure goals with driving yesterday and this morning. Pt went out with his brother recently and it went well, pt felt he engaged less in compulsions and pt stopped on the gas station today. Pt recognizes that I know I know the skills and if I don't stop the compulsions I won't get better. Pt responded well to discussion on acceptance and not regretting moments of giovanna. Pt shared part of him has been resistant to the skills because he feels like I'll be happy and then everyone will find out I'm living a lie. Pt stated he is trying to challenge this perspective and remind himself that he will not, and has not in the past, regret living his life without debilitating OCD. Pt's homework is to continue working on his exposure goals and to practice identifying mental health wins when he is not at IOP. Risks/Concerns:: Pt denies any suicidal ideations, plan, or intent. Pt denies any thoughts of . Progress Toward Goals/Plan:: Pt's progress is variable based on the day/week, but today pt reports improved mood and outlook. Pt shared he listened to his recordings and did his homework with his exposure goals. Pt reported he continues to gain awareness of what I need to do and what's stopping me. Pt receptive to goal setting for the weekend and receptive to discussion on identifying mental health wins on days he is not at IOP. Pt will continue IOP tx to promote use of healthy coping skills, improve daily functioning, and reduce intensity of OCD. Time Stopped:: 09:15
--- NOTE | 2024-04-27 11:13 | BH.SGPN.GN ---
Behaviors/Verbalizations/Mental Status: [] Client alert and oriented, neatly dressed and groomed. Eye contact good. Motor activity appropriate. Speech within normal limits. Affect congruent, mood euthymic. Thoughts linear, logical, no signs of hallucinations or delusions Client Response/Progress/Benefit: []Client responded well to session AEB completing the resilience worksheet provided. Client actively participated in the discussion and worked cooperatively with group to identify strategies to enhance each of the components discussed. Client reports belief they already use resilience trait of ?self awareness.? Client discussed that they could work on avoiding seeing rises as insurmountable problems. Client seemed to benefit from discussing strategies for improving personal resilience and identifying resilience traits client already possesses. Will continue IOP tx to increase self care and distress tolerance skills. Narrative Note: []
--- NOTE | 2024-04-30 09:05 | BH.SGPN.GN ---
Behaviors/Verbalizations/Mental Status: [] Eye contact is good. Motor activity is appropriate. Appearance is casual. Speech is Appropriate. Mood is anxious/irritable. Affect is congruent. Thoughts are linear and logical. No evidence of psychosis. Reviewed daily check in sheet and no reports of suicidal ideations. Client Response/Progress/Benefit: [] Pt participated when prompted. Daily symptom tracker notes 08/08 for anxiety and depression. Attentive. Struggled again this weekend however states ? I bounced back on Tuesday?. Utilizing skills at times however not consistently. ? Feeling OK today?. Overall notes decrease in intrusive thoughts yesterday and today. Responds well when he completes exposure goals, opposite-action, and challenges thoughts however struggles to follow through consistently. Benefited from group support, encouragement, and feedback. Will continue in IOP to prevent decompensation, decrease intrusive thoughts, and improve functioning. Narrative Note: []
--- NOTE | 2024-04-30 10:15 | BH.SGPN.GN ---
Behaviors/Verbalizations/Mental Status: [] Client alert and oriented, casually dressed and groomed. Eye contact fair. Motor activity appropriate. Speech within normal limits. Affect congruent, mood dysthymic. Thoughts linear, logical, no signs of hallucinations or delusions. Client Response/Progress/Benefit: [] Client was an active participant AEB contributing to discussion, taking notes, and engaging in group activity. Connected with the topic of pitfalls and listened to group discussion on barriers that prevent from choosing a healthier path to mental wellness. Group worked together to identify examples of personal pitfalls. Pt identified personal pitfalls to include: comparing self to others, isolation, self sabotage, and fear of failure. Client benefited from group as client learned to better identify potential barriers to improving mental health symptoms. Client will continue IOP tx to decrease anxious safety behaviors, challenge negative thoughts, and prevent decompensation.
--- NOTE | 2024-04-30 11:15 | BH.SGPN.GN ---
Behaviors/Verbalizations/Mental Status: []Client alert and oriented, casually dressed and groomed. Eye contact good. Motor activity appropriate. Speech within normal limits. Affect congruent, mood anxious and engaged. Thoughts linear, logical, no signs of hallucinations or delusions. Client Response/Progress/Benefit: [] Pt receptive of session, engaged throughout AEB Pt actively listening and contributing to discussion as well as taking notes.? Pt participated in the experiential activity and did well to communicate ideas with peers and manage emotions. Pt attentive as group processed how the emotions and perspective of the group impacted the activity. Group worked together to identify different coping skills to help manage pitfalls. Pt identified pitfall they struggle with as self-sabotaging. Pt plans to work on their pitfall by living with ?more comfort for the unknown.? Benefited from identifying personal pitfalls and strategies to overcome these pitfalls. Pt will continue IOP tx to promote use of heathy coping skills, improve daily functioning, and reinforce distress tolerance skills. Narrative Note: []
--- NOTE | 2024-05-02 09:05 | BH.SGPN.GN ---
Behaviors/Verbalizations/Mental Status: [] Client alert and oriented, casual appearance. Eye contact good. Motor activity appropriate. Speech within normal limits. Affect congruent, mood euthymic. Thoughts linear, logical, no signs of hallucinations or delusions. Reviewed client's symptom tracker, no risk for suicidal ideation, plan, or intent. Client Response/Progress/Benefit: [] Client responded well to session AEB listening to others and sharing thoughts/feelings. Client stated mental positive as using opposite action to make himself drive to another place besides IOP yesterday which is the first time he has done this since starting the program. Client stated although it was uncomfortable he was prior to himself for making himself do something that he knows is necessary to help overcome his anxious thoughts. Client reported additional mental positive is doing well at home with decreased utilization of compulsions. Client stated an additional positive as having 3 to 4 days of doing better with decreased intrusive thoughts and decreased compulsions. Client reported continued stressor is still having intrusive thoughts. Appeared to benefit from support from peers. Will continue IOP tx to promote use of healthy coping skills, continue to work on exposure to anxiety provoking situations, and prevent decompensation. Narrative Note: []
--- NOTE | 2024-05-02 10:10 | BH.SGPN.GN ---
Behaviors/Verbalizations/Mental Status: [] Pt alert and oriented, casually dressed and groomed. Eye contact good. Motor activity appropriate. Speech within normal limits. Affect congruent, mood depressed and anxious. Thoughts linear, logical, no signs of hallucinations or delusions. Client Response/Progress/Benefit: [] Pt an active participant in group discussions on defining conflict (internal/external) and possible benefits to conflict. Attentive during psychoeducation on conflict styles (avoidant, accommodating, competing, cooperative) and engaged during group discussion in which peers identified the benefits and consequences to each conflict style. Pt identified that he tends to be avoidant and would like to feel more confident in standing up for myself. Benefited from increased awareness of the impact of conflict styles in mental health. Will continue in IOP tx for one more day to prevent decompensation, decrease intrusive thoughts, and improve functioning. Narrative Note: []
--- NOTE | 2024-05-02 11:10 | BH.SGPN.GN ---
Behaviors/Verbalizations/Mental Status: []Eye contact is good. Motor activity is appropriate. Appearance is casual. Speech is Appropriate. Mood is content. Affect is congruent. Thoughts are linear and logical. No evidence of psychosis. Client Response/Progress/Benefit: [] Pt was an active participant in group discussions and activity. Engaged with peers in activity and identifying healthy ways to approach each conflict scenario. Group discussed various conflict resolution skills that can be useful in addressing conflict outside of IOP. Benefited from practicing and learning conflict resolution skills during group activity. Able to identify areas pt wants to work on to improve how pt manages conflict both internally and externally. Expressed wanting to work on reducing avoidance and more consistently advocating for his own needs. Will continue in IOP to promote mood stability, improve consistency in application of skills, and prevent decompensation. Narrative Note: []
--- NOTE | 2024-05-02 14:13 | BH.MDN ---
Multi-Disciplinary Note Note 60-min Individual: Time Started:: 12:10 Date: 05/02/24 Purpose of session/treatment goals addressed:: To address current stressors and discuss strategies to help cope with these stressors. Another goal was to discuss discharge and aftercare Eye Contact:: Good Motor Activity:: Appropriate Appearance:: Casual Speech:: Appropriate Mood:: Euthymic and Anxious Affect:: Full Thoughts:: Linear, Logical and No evidence of hallucinations/delusions noted Staff Interventions:: thought challenging, CBT techniques, mindfulness skills, discharge planning and strengths perspective Client Response:: Pt responded well to session, open to meeting with therapist. Pt and therapist started with a walk which pt shared was beneficial for him. Pt reports progress with reducing the amount of time he engages in his driving compulsions by about 15 minutes. Pt shared he used to engage in his compulsions for hours after driving home from IOP tx, but the last week he has been doing it for less time more consistently. Pt has been following through with using opposite action to not engage in his compulsions as long and he practicing his wetzel-mind thinking. Pt also feels less hopeless this week and he is more motivated to work on his goals per his report. Pt is anxious to leave [facility], but he also reports that he has hit a wall with what I can learn and now I have to apply it. Pt receptive to getting a therapist that does not specialize in ERP while he waits to find a specialist. Pt and therapist have been searching for weeks with no luck. Pt will be connected through [facility] for outpatient counseling and pt wants to attend [facility] aftercare group. Pt and therapist reviewed several strategies for managing intrusive thoughts and pt reminded himself of what was discussed in previous sessions. Risks/Concerns:: Pt denies any suicidal ideations, plan, or intent. Pt denies any thoughts of . Progress Toward Goals/Plan:: Pt reports within the past week he has been more consistent with using his coping skills and he is finding benefit. Pt stated he is using more opposite action and having less freeze moments which pt has when he gets stuck in compulsions for hours. Pt reports he has reduced compulsion time by about 15 minutes over the past week, specifically with driving. Pt is receptive to transitioning to outpatient counseling and making next week his last IOP week. Pt overall has made mild progress, but he reports he has reached his maximum benefit from IOP and that he needs to just apply the skills. Time Stopped:: 13:05
--- NOTE | 2024-06-04 14:13 | BH.TPR ---
Treatment Plan Review Demographics Date of Admission:: 03/06/24 Date of Treatment Plan Review:: 04/04/24 Admitting Diagnoses:: Obsessive-compulsive disorder F 42; Major depressive disorder, recurrent, severe without psychosis; Generalized anxiety disorder Current Diagnoses:: Obsessive-compulsive disorder F 42; Major depressive disorder, recurrent, severe without psychosis; Generalized anxiety disorder Patient Status Patient's Response to Treatment:: Pt has responded well to session AEB consistently attending IOP and engaging in both individual and group therapy sessions. Pt consistently completes homework provided from individual counseling. Pt contributes actively during group discussions, takes notes, appears to listen to others, and engages in group activities. Pt's overall DSM-5 scores have decreased by 25% since admission with anxiety decreasing by 50% and depression decreasing by 50%. However, pt's OCD symptoms have not decreased since admission, however, pt is actively working on a fear ladder and this can temporarily increase anxiety before it reduces. Status of Current Problems and Symptoms: Pt's OCD symptoms continue to impact his daily functioning and be severe. Pt is still unable to work and drive (other than to IOP). Pt stated he is gaining skills from IOP and improving his ability to socialize, but he is still experiencing intrusive thoughts constantly. Pt is working on reducing isolation and increasing internal motivation as well. Progress Problem #1: Problem Name:: OCD Status of Goals:: Objective 1- in progress. Pt is working on his fear ladder and has begun small exposure goals. Pt will work his way up to more anxiety producing goals. Objective 2-in progress. Pt?s DSM-5 scores are the same since admission for OCD, however, pt is actively working on a fear ladder and this can temporarily increase anxiety before it reduces. Pt reports utilizing calming skills and trying to reduce compulsions, but he notes it has been difficult. Pt's anxiety has decreased by 50% since admission. Team Recommendations:: Treatment team encourages pt to continue working on distress tolerance skills, repeating exposure goals, and engaging socially. Problem #2: Problem Name:: Depression and low self-esteem Status of Goals:: Objective 1-in progress. Pt?s DSM-5 scores have decreased by 50% since admission. Pt reports benefitting from having a routine that gets pt out of the house and engaged socially. Pt will continue working on implementing healthy coping skills. Objective 2- in progress. Pt is working on catching himself when he uses self-deprecating talk and pt is learning more about self-compassion. However, pt has very low self-esteem and he admits that there are times he will actively self-loath which makes it hard to practice positive self-talk. Team Recommendations:: Team recommends continued goals and objectives to reinforce skills and reduce symptoms. Team recommends pt continue working on combating distortions, being more self-compassionate, and using behavioral activation.
== END 2024-05-03 23:59 ==
LOC: BHIOP 08:02
PROVIDERS: Referring Provider Psychiatry & Neurology Psychiatry; Visit Provider Psychiatry & Neurology Psychiatry
DX: F42.9 Obsessive-compulsive disorder, unspecified (principal); F33.2 Major depressive disorder, recurrent severe without psychotic features; F41.1 Generalized anxiety disorder; G89.29 Other chronic pain; M54.9 Dorsalgia, unspecified; M45.9 Ankylosing spondylitis of unspecified sites in spine; Z85.850 Personal history of malignant neoplasm of thyroid; F12.90 Cannabis use, unspecified, uncomplicated; Z79.899 Other long term (current) drug therapy
CPT/HCPCS: S9480; 90832; 90834; 90837; 90847; 90853

== ENCOUNTER 2024-05-04 07:57 | Outpatient (RCR) | payer MEDICARE, MEDICAID, SELFPAY ==
--- NOTE | 2024-05-04 09:05 | BH.SGPN.GN ---
Behaviors/Verbalizations/Mental Status: [] Eye contact is good. Motor activity is appropriate. Appearance is casual. Speech is Appropriate. Mood is anxious. Affect is congruent. Thoughts are linear and logical. No evidence of psychosis. Reviewed daily check in sheet and no reports of suicidal ideations or intent. Client Response/Progress/Benefit: [] Pt participated at times during the group discussions. Attentive. According to patient he utilized skills to stop spiraling . Skills used included opposite-action, distraction, and chellenging thoughts. Practicing exposure goal of driving around town. Awareness of the growth associated with utilized strategies rather than isolation when struggling. Progress noted. Benefited from group support, encouragement, and feedback. Will continue in IOP to prevent decompensation, decrease intrusive thoughts, and improve functioning. Narrative Note: []
--- NOTE | 2024-05-04 10:16 | BH.SGPN.GN ---
Behaviors/Verbalizations/Mental Status: [] Eye contact is good. Motor activity is appropriate. Appearance is casual. Speech is Appropriate. Mood is content, anxious. Affect is congruent. Thoughts are linear and logical. No evidence of psychosis. Client Response/Progress/Benefit: [] Pt participated at times during group discussion. Engaged in group activity and attentive during psychoeducation. Along with peers, pt was able to identify barriers to taking action in their life. Identified several symptoms and stressors that pt feels are holding them back from progress such as fear of failure, intrusive thoughts, and low motivation/apathy. Stated these things have kept pt from challenging himself to do the anxious thing . Benefited from increased self-awareness of obstacles. Will continue IOP tx to prevent decompensation, further stabilize mood, and increase consistency of healthy coping and self-confidence. Narrative Note: []
--- NOTE | 2024-05-07 09:00 | BH.SGPN.GN ---
Behaviors/Verbalizations/Mental Status: [] Eye contact is poor. Motor activity is appropriate. Appearance is casual. Speech is Appropriate. Mood is anxious/depressed. Affect is constricted. Thoughts are linear and logical. No evidence of psychosis. Reviewed daily check in sheet and no reports of suicidal ideations or intent. Client Response/Progress/Benefit: [] Pt participated when prompted. Attentive. Daily symptom tracker notes 4/5 for depression and 3/5 for anxiety. Symptom tracker notes mood and ability to function as worse . He tells the group that he has been following through with exposure goals which can exacerbate symptoms however able to see progress stating I'm a little better with driving with his OCD/intrusive thoughts. Emotion for today is disconnected . Limited progress noted. Benefited from group support, encouragement, and feedback. Will continue in IOP to prevent decompensation, decrease intrusive thoughts, and improve functioning. Narrative Note: []
--- NOTE | 2024-05-07 10:15 | BH.SGPN.GN ---
Behaviors/Verbalizations/Mental Status: [] Eye contact is good. Motor activity is appropriate. Appearance is casual. Speech is Appropriate. Mood is anxious. Affect is constricted. Thoughts are linear and logical. No evidence of psychosis. Client Response/Progress/Benefit: [] Pt receptive to session AEB contributing to group discussion, as well as listening attentively to others, and taking notes. Worked with group to brainstorm the definition of stress, the positive and negative aspects of stress on physical and mental health as well as the impact of stress on performance, relationships, and mental health. Pt shared their top stressors to be: intrusive thoughts, physical pain, and lack of relationships. Shared when feeling overwhelmed with stress pt tends to isolate, shutdown, panic, nap, and overeat. Benefited from increased awareness of positive and negative stress as well as how stress impact individuals. Will continue in IOP to prevent decompensation, decrease intrusive thoughts, and improve functioning. Narrative Note: []
--- NOTE | 2024-05-07 11:15 | BH.SGPN.GN ---
Behaviors/Verbalizations/Mental Status: []Pt alert and oriented, casually dressed and groomed. Eye contact good. Motor activity appropriate. Speech within normal limits. Affect congruent, mood anxious and dysthymic. Thoughts linear, logical, no signs of hallucinations or delusions. Client Response/Progress/Benefit: [] Pt was an attentive and active participant in group discussions and experiential activity, doing well to regulate their emotions throughout the activity and work with peers. Attentive during psychoeducation on the 4 A's (Avoid, adapt, alter, accept) of coping with stress. Shared that they would benefit most from adapting the way their perspective about his OCD symptoms and trying to be less all or nothing. Was able to identify the connection between the experiential activity and utilization of stress management skills. Benefited from increased awareness of stress management strategies. Pt will continue IOP tx to reinforce healthy coping skills and establish an aftercare plan. Narrative Note: []
--- NOTE | 2024-05-09 08:13 | BH.AFTERPLAN ---
Aftercare Plan Demographics Treatment End Date:: 05/09/24 Psychiatrist:: Karma Dodd Psychiatrist Office #:: [phone] [facility] Therapist:: Ely Carcamo Therapist Phone #:: [phone] Medications Home Medications alprazolam 1 mg tablet (Xanax) 1 mg PO DAILY PRN anxiety 03/07/24 lamotrigine 150 mg tablet (Lamictal) 150 mg PO DAILY 03/07/24 levothyroxine 125 mcg tablet (Euthyrox) 125 mcg PO DAILY 03/07/24 lurasidone 80 mg tablet (Latuda) 80 mg PO DAILY 03/07/24 trazodone 50 mg tablet 50 mg PO QHS PRN insomnia 03/07/24 fluvoxamine 100 mg tablet 200 mg (2 x 100 mg) PO QHS 30 days #60 tabs 04/11/24 Plan Details Progress/Aftercare Plan Details:: Chas has responded well to treatment as evidenced by Chas consistently attending IOP sessions and his reduction of DSM-5 scores since admission. Chas was always attentive and receptive to learning during group and individual sessions. Chas applied coping skills outside of IOP, reports overall his mood is improved, and he is functioning better than he was several months ago. Chas?s overall symptom reduction is 10% since admission with anger decreasing by 33%, depression decreasing by 25%, and anxiety decreasing by 8%. Chas has increased self-confidence and can continue to work on building more confidence. Chas did well with the fear ladder and has more work to go. Chas will continue with his outpatient psychiatrist, and he will begin with Sakshi Carson through [facility]. Strategies for Success:: 1. Opposite action! Continue to break that cycle of anxiety and depression by not letting emotions be the only drivers of your bus. Remember you do have the power to get off on a new exit. 2. Remember that thoughts are thoughts NOT facts! You have power in if you give thoughts the time of day or not. 3. self-care! You deserve to take time for you and you also deserve to face the not so fun self-care like sitting with the uncomfortable 4. Self-compassion! You are human and you will make a mistake?BUT that doesn?t mean you are a failure or not good enough. Give yourself credit for all the wonderful things you do. 5. continue working on your fear ladder! You have done so well with it. 6. Practice positive self-talk and keep track of your wins. 7. Remember progress isn?t linear! You may have a setback or bump in the road, but that doesn?t mean you?ve lost all progress. 8. self-reflection and self-awareness. 9. Delay, Distract, Decide 10. Live in the prater!! Appointments Appointments/Referrals to Other Services:: 1. Follow up with Dr. Hernandez for medication management. Next visit is in June. 2. Follow up with Sakshi Carson for individual counseling, currently on the waiting list. 3. IOP aftercare group starting 05/10/24 for 8 session from 2:00-3:30pm.
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
--- NOTE | 2024-05-09 09:00 | BH.SGPN.GN ---
Behaviors/Verbalizations/Mental Status: [] Eye contact is good. Motor activity is appropriate. Appearance is casual. Speech is Appropriate. Mood is anxious. Affect is constricted. Thoughts are linear and logical. No evidence of psychosis. Reviewed daily check in sheet and no reports of suicidal ideations or intent. Client Response/Progress/Benefit: [] Pt was an active participant in group discussion. Attentive. Shared with the group that today is his last day as he is graduating successfully from [facility]. According to pt [facility] has provided help and confidence . Looking back on his time in [facility] he is able to identify progress in regards to his intrusive thoughts and functioning. I'm driving by myself more . While he continue to struggle with intrusive thoughts and OCD he reports increased awareness and skills. Briefly identifed groups and skills that have been most beneficial. Progress noted. Benefited from group support, encouragement, and feedback. Will be discharged from [facility] today. Narrative Note: []
--- NOTE | 2024-05-09 15:22 | BH.MDN ---
Multi-Disciplinary Note Note 45-min Individual: Time Started:: 12:20 Date: 05/09/24 Purpose of session/treatment goals addressed:: To address current stressors and discuss strategies to help cope with these stressors. Another goal was to discuss discharge and aftercare. Eye Contact:: Good and Fair Motor Activity:: Appropriate Appearance:: Casual Speech:: Appropriate and Other (repetitive) Mood:: Anxious and Other (sad to be leaving IOP) Affect:: Congruent (tearful) Thoughts:: Circular and No evidence of hallucinations/delusions noted Staff Interventions:: thought challenging, CBT techniques, mindfulness skills, discharge planning, strengths perspective and reviewed DSM-5 Client Response:: Pt responded well to session, open to meeting with therapist. Pt was tearful and shared I know everyone gets sad to leave, but I just get so attached. Pt stated he has found the program helpful in many ways including giving pt a support system, routine, confidence in talking with people, and coping skills. Pt stated if I could just get over this OCD I feel like I could have a really good life. Pt has admitted in several sessions that part of his barrier to working on his OCD is that he is not ready to live in the uncertainty and be okay with allowing myself happiness. Pt recognizes that he has all the tools to cope with this, but he has to be ready to apply them. Pt is willing to continue working on this with his outpatient therapist. Pt is also ready to get back into thrifting and working again with his brother's support. Pt shared he feels he made progress with challenging negative thinking, being more social (pt was isolated for years) and gaining healthy coping skills. Pt recognizes he has more work to do, but he also has a lot more coping skills than he did previously. Pt will participate in [facility] aftercare starting on 05/10/24. Risks/Concerns:: Pt denies any suicidal ideations, plan, or intent. Pt denies any thoughts of . Progress Toward Goals/Plan:: Pt will discharge from [facility] tx today as pt reports reaching the maximum benefit from the program and he recognizes now I just need to do it. Pt's overall DSM-5 scores have decreased and pt feels that in some areas he is functioning better (driving and self-care) but in other areas he still feels overwhelmed (POCD). Pt is receptive to working individually with Sakshi for regular outpatient counseling while pt looks for ERP therapy. Pt and therapist attempted to find pt an OCD therapist, but three of the providers were not accepting new patients. Pt and his mother agree to keep looking for providers. Time Stopped:: 13:00
== END 2024-05-09 14:39 | disposition home or self-care (01) ==
LOC: BHIOP 07:57
PROVIDERS: Referring Provider Psychiatry & Neurology Psychiatry; Visit Provider Psychiatry & Neurology Psychiatry
DX: F42.9 Obsessive-compulsive disorder, unspecified (principal); F33.2 Major depressive disorder, recurrent severe without psychotic features; F41.1 Generalized anxiety disorder; Z79.899 Other long term (current) drug therapy
CPT/HCPCS: S9480; 90834; 90853

== ENCOUNTER 2024-05-10 14:09 | Outpatient (RCR) | payer MEDICARE, MEDICAID, SELFPAY ==
--- NOTE | 2024-05-10 14:00 | BH.SGPN.GN ---
Behaviors/Verbalizations/Mental Status: []Pt alert and oriented, casually dressed and groomed. Eye contact fair to good. Motor activity appropriate. Speech within normal limits. Affect congruent, mood down. Thoughts linear, logical, no signs of hallucinations or delusions. Client Response/Progress/Benefit: []Pt responded well to session AEB sharing and listening attentively to others. Pt has scheduled outpatient mental health appointments for early next month, but does admit to inconsistent medication compliance. Pt reports struggling with skills to help with managing mental health symptoms despite active awareness of them. Pt participated in group discussion defining affirmations and why they are important. Pt provided insight throughout clinician?s presentation of tips for writing personal affirmations and wrote their own affirmations, including ?I am worth self-love and love from others, I am a good person and my actions back this up, and I have the power to address negative thoughtsf?. Pt appeared to benefit from increased knowledge of affirmation writing skills and creating their own affirmation statements to remind themselves of outside tx environment. Will continue aftercare tx to promote consistent mental health maintenance and prevent decompensation. Narrative Note: []
--- NOTE | 2024-05-10 16:25 | BH.MTP ---
Master Treatment Plan Patient Information Program Physician:: Dr. Karma Dodd Primary Therapist:: Ely OVIEDO Psychiatric Diagnoses Psychiatric Diagnoses:: Obsessive-compulsive disorder F 42; Major depressive disorder, recurrent, severe without psychosis; Generalized anxiety disorder Diagnosis Code(s):: F 42 Estimated LOS Estimated LOS (in weeks):: 8 Problem/Goal #1 Problem/Goal #1 Stated Goal:: client will maintain or see a reduction in symptoms AEB client score on the DSM 5 cross-cutting measure and improve client's daily functioning. Objectives Objective #1: Stated Objective: Client will continue to consistently apply healthy coping skills to maintain progress made in IOP tx. Interventions: Through group therapy, client will review warning signs and triggers as well as healthy coping skills learned in IOP tx to successfully maintain gains while transitioning into outpatient therapy. Discharge Criteria: Client will have accomplished this goal when client's score on the DSM-5 cross-cutting measure has maintained or reduced over a 8 week period. Target Date: 07/05/24 Review Date: 06/07/24 Status: open Objective #2: Stated Objective: Client will learn and utilize 2-3 maintenance strategies to prevent decompensation from original IOP DSM-5 scores. Interventions: Through group therapy, client will be provided with education on healthy maintenance behaviors, relapse prevention techniques, and healthy coping strategies. Discharge Criteria: Client will have accomplished this goal when can report using at least 2 maintenance skills to prevent decompensation compared to original IOP DSM-5 scores Target Date: 07/05/24 Review Date: 06/07/24 Status: open
--- NOTE | 2024-05-24 14:00 | BH.SGPN.GN ---
Behaviors/Verbalizations/Mental Status: []Pt alert and oriented, casually dressed and fairly groomed. Eye contact fair. Motor activity appropriate. Speech within normal limits. Affect congruent, mood anxious and depressed. Thoughts linear, logical, no signs of hallucinations or delusions. Client Response/Progress/Benefit: []Client stated he still doesn't have an outpatient therapist, but is on a waitlist. Therapist encouraged client to reach out to check-in on estimated time frame on list. Client agreed it would be helpful for him to have an individual therapist. Client reported his OCD was bad this last week and he gave into majority of his compulsions. Client reported he has started to slip back with not using his healthy coping skills. Client reported having a hard time between differentiating between intrusive thought vs real thought. Client reported he did not complete homework. Client attentive to psychoeducation about gratitude and provided contributions throughout. Client created his gratitude plan for the week. Decompensation noted in progress AEB pt reporting increase in OCD symptoms and decrease in healthy skill use. Pt to continue IOP to prevent further decompensation, increase consistent use of healthy coping skills, and prevent decompensation.
== END 2024-06-02 23:59 ==
LOC: BHOG 14:09
PROVIDERS: Referring Provider Psychiatry & Neurology Psychiatry; Visit Provider Psychiatry & Neurology Psychiatry
DX: F42.9 Obsessive-compulsive disorder, unspecified (principal); F33.2 Major depressive disorder, recurrent severe without psychotic features; F41.1 Generalized anxiety disorder; Z79.899 Other long term (current) drug therapy
CPT/HCPCS: 90853

== ENCOUNTER 2024-06-04 07:09 | Outpatient (RCR) | payer MEDICARE, MEDICAID, SELFPAY ==
--- NOTE | 2024-06-14 14:00 | BH.SGPN.GN ---
Behaviors/Verbalizations/Mental Status: []Pt alert and oriented, casually dressed and groomed. Eye contact good. Motor activity appropriate. Speech within normal limits. Affect congruent, mood depressed. Thoughts linear, logical, no signs of hallucinations or delusions. Client Response/Progress/Benefit: []Pt receptive of session, engaged throughout. Pt shared they have met with their outpatient provider since last session and are excited to be meet with psychiatry next month. Pt has been taking medications consistently and reports struggling with utilizing healthy coping skills outside of aftercare. Self-reports engaging in self-sabotage via not using exposure goals and feeding into compulsions. ?Receptive of discussion on sitting with the uncomfortable and emotional urges. Pt contributed to the discussion of distress tolerance and how building distress tolerance can help improve mood stability and resilience. Pt wants to keep building distress tolerance by doing something enjoyable despite thoughts that he does not deserve it. Pt seemed to benefit from support from peers and increasing understanding of distress tolerance. Will continue aftercare to reinforce healthy coping skills and improve daily functioning. Narrative Note: []
--- NOTE | 2024-06-14 15:19 | BH.MTP_ITS ---
Treatment Plan Review Demographics Date of Admission:: 05/10/24 Date of Treatment Plan Review:: 06/14/24 Admitting Diagnoses:: Obsessive-compulsive disorder F 42; Major depressive disorder, recurrent, severe without psychosis; Generalized anxiety disorder Current Diagnoses:: Obsessive-compulsive disorder F 42; Major depressive disorder, recurrent, severe without psychosis; Generalized anxiety disorder Patient Status Patient's Response to Treatment:: Pt is consistent with attendance, but pt admits that when he is not at IOP he is not using many skills. Pt often reports his depression and OCD are just as bad as before and that he is returning to his use of compulsions. Pt reports not doing homework from previous aftercare sessions on a consistent basis as well. Status of Current Problems and Symptoms: Pt's OCD and depressive symptoms continue to significantly impact his daily functioning and ability to socialize. Pt reports he has returned to his compulsions and he is not accomplishing many goals at home. Pt is connected with outpatient therapy through [facility] and he has started seeing Sakshi there. Progress Problem #1: Problem Name:: Pt will maintain or see a reduction in sx Status of Goals:: Obj 1 - not complete. Pt's DSM 5 scores have not imp roved compared to his initial IOP scores. Pt reports once he graduated from IOP he decompensated due to missing the structure. Obj 2 - not complete. Pt self- reports not using healthy coping skills and he mostly sleeps per his report. Team Recommendations:: Recommended client continue IOP aftercare group in addition to attending regular outpatient counseling in order to prevent decompensation. Pt has been encouraged by his outpatient therapist and IOP staff to increase his application of distress tolerance skills and work on his ERP goals. Pt may be referred to another IOP if his symptoms continue to worsen.
== END 2024-07-03 23:59 ==
LOC: BHOG 07:09
PROVIDERS: Referring Provider Psychiatry & Neurology Psychiatry; Visit Provider Psychiatry & Neurology Psychiatry
DX: F33.2 Major depressive disorder, recurrent severe without psychotic features (principal); F42.9 Obsessive-compulsive disorder, unspecified; F41.1 Generalized anxiety disorder; Z79.899 Other long term (current) drug therapy
CPT/HCPCS: 90853

== ENCOUNTER 2024-07-05 07:09 | Outpatient (RCR) | payer MEDICARE, MEDICAID, SELFPAY ==
--- NOTE | 2024-07-05 14:00 | BH.SGPN.GN ---
Behaviors/Verbalizations/Mental Status: []Pt alert and oriented, casually dressed and groomed. Eye contact fair. Motor activity appropriate. Speech within normal limits. Affect constricted, mood anxious and depressed. Thoughts linear, logical, no signs of hallucinations or delusions. Client Response/Progress/Benefit: []Pt receptive of session, engaged throughout. Pt reported he was been consistently seeing his outpatient therapist and is seeing his psychiatrist next week. Pt reported he believes his medications need to be reevaluated. Pt reported he is not using a ton of day to day skills, but noted he has been doing more skills for his OCD. Pt reported his not seeing much benefit from the skills he is using and feels worse. Pt reported feeling lost on what to do because tried the skills for one week and felt worse. This service writer gently challenged client that he's been engaging in obsessions and compulsions for quite some time and it's going to take time before he starts to feel better. Receptive of discussion on ?Chapters of my life? poem. Pt contributed to the discussion of the different chapters one may go through and how they connect with current mental health progress. Pt completed self-reflection on what chapter he believes he is in. Pt seemed to benefit from support from peers and increasing understanding of ?Chapters of my life?. Client will discharge from aftercare today.
--- NOTE | 2024-07-05 15:39 | BH.DS_ITS ---
Discharge Summary Demographics Date of Admission:: 05/10/24 Discharge Date: 07/05/24 Presenting Problems at Admission:: Pt discharged from [facility] tx and began aftercare to promote the use of distress tolerance skills, socialize, and increase self- confidence. Pt's OCD symptoms, anxiety, and lack of self-esteem were problems for pt at [facility] aftercare admission. Discharge Diagnoses:: Obsessive-compulsive disorder F 43; Major depressive disorder, recurrent, severe without psychosis; Generalized anxiety disorder Reason for Discharge:: Pt has completed 8 weeks of IOP aftercare which is the maximum number of sessions. Pt did not complete his tx goals, see below, but pt will continue with outpatient therapy. Treatment Progress During Treatment & Response: Pt was consistent with attendance, but pt admits that when he is not at IOP he is not using many skills. Pt often reported his depression and OCD were just as bad as before and that he returned to his use of compulsions. Pt reported almost every session that he did not do homework from previous aftercare sessions and he has not been using coping skills consistently due to his OCD. Issues Still to be Addressed:: Managing his OCD, lack of motivation, isolation and avoidance, and lack of self-esteem. Discharge Recommendations/Instructions:: Pt will continue with his outpatient psychiatrist through [facility]. Pt will also continue to follow up with Sakshi Acosta for individual therapy at [facility]. Discharge Handout
== END 2024-07-06 06:56 | disposition home or self-care (01) ==
LOC: BHOG 07:09
PROVIDERS: Referring Provider Psychiatry & Neurology Psychiatry; Visit Provider Psychiatry & Neurology Psychiatry
DX: F42.9 Obsessive-compulsive disorder, unspecified (principal); F33.2 Major depressive disorder, recurrent severe without psychotic features; F41.1 Generalized anxiety disorder
CPT/HCPCS: 90853